=== PATIENT | female | born 1935 | race Caucasian/White ===

== ENCOUNTER 2017-06-10 08:47 | Observation (INO) ==
[2017-06-10] MEDS ORDERED: Ondansetron 4 MG/2 ML VIAL IVP ONE (09:11)
[2017-06-10] MEDS ORDERED: *HR* FentaNYL (PF) 100 MCG/2 ML VIAL IVP ONE (09:22)
[2017-06-10] MEDS ORDERED: Aspirin 81 MG TAB.CHEW PO STA (09:29)
--- NOTE | 2017-06-10 09:33 | Emergency Department Note ---
Disposition Clinical Impression: Abdominal pain Qualifiers: Abdominal location: right upper quadrant Qualified Code(s): R10.11 - Right upper quadrant pain Disposition: Admitted As Inpatient Condition: Fair Referrals: Graciela Crespo MD [Primary Care Provider] - Forms: ED Satisfaction Letter, Work/School Release Time of Disposition: 12:24 General Adult HPI - General Chief complaint: ED Abdominal Pain Stated complaint: Abd pain/vomiting Time Seen by Provider: 06/10/17 08:57 Source: patient Limitations: no limitations - History of Present Illness Pain Scale: 8 - Related Data Allergies Allergy/AdvReac Type Severity Reaction Status Date / Time No Known Allergies Allergy Verified 06/10/17 08:53 Past Medical History - Past Medical History Medical history: Reports: diabetes, hyperlipidemia, hypertension, renal disease , thyroid disease Psychiatric history: Reports: no psych history - Social History Smoking Status: Never smoker Smokeless Tobacco Status: No Alcohol use: Reports: none Drug use: Reports: none Physical Exam - General Limitations: no limitations General appearance: alert Course Vital Signs Temperature 98.2 F 06/10/17 08:50 Pulse Rate 75 06/10/17 08:50 Respiratory Rate 18 06/10/17 08:50 Blood Pressure 152/77 06/10/17 08:50 O2 Sat by Pulse Oximetry 99 06/10/17 08:50 Temperature 98.2 F 06/10/17 08:50 Pulse Rate 68 06/10/17 12:07 Respiratory Rate 15 06/10/17 12:07 Blood Pressure 134/54 06/10/17 12:07 O2 Sat by Pulse Oximetry 98 06/10/17 12:07 Oxygen Delivery Oxygen Delivery Room Air Medical Decision Making - Lab Data Result diagrams: 06/10/17 09:23 06/10/17 09:23 Lab Results 06/10/17 06/10/17 06/10/17 Range/Units 09:23 09:23 09:23 WBC 15.4 H (4.3-11.1) K/mcL RBC 3.96 (3.82-4.97) M/mcL Hgb 12.3 (11.5-15.4) g/dL Hct 37.7 (35.3-44.9) % MCV 95.2 (83.0-100.0) fL MCH 31.1 (28.0-33.3) pg MCHC 32.6 (31.6-35.5) g/dL RDW 13.6 (11.5-14.5) % Plt Count 217 (140-400) K/mcL MPV 13.1 H (9.4-12.4) fL Immature Gran % 0.5 (0-4) % Seg Neutrophils % 91.5 % Lymphocytes % 3.6 % Monocytes % 4.1 % Eosinophils % 0.1 % Basophils % 0.2 % Neutrophils # 14.1 H (1.6-8.9) K/mcL Lymphocytes # 0.6 (0.6-4.6) K/mcL Monocytes # 0.6 (0.0-1.3) K/mcL Eosinophils # 0.0 (0.0-0.6) K/mcL Basophils # 0.0 (0.0-0.2) K/mcL Sodium 138 (136-145) mEq/L Potassium 3.8 (3.5-5.1) mEq/L Chloride 104 (98-107) mEq/L Carbon Dioxide 26 (23-29) mEq/L BUN 34 H (8-23) mg/dL Creatinine 1.22 H (0.60-1.20) mg/dL Est GFR ( Amer) 51 L (> 60) Est GFR (Non-Af Amer) 42 L (> 60) BUN/Creatinine Ratio 28 H (6-26) Glucose 215 H (70-105) mg/dL Calculated Osmolality 300 (280-300) Calcium 9.5 (8.6-10.3) mg/dL Total Bilirubin 0.5 (0.3-1.0) mg/dL Direct Bilirubin 0.2 (0.0-0.2) mg/dL Indirect Bilirubin 0.3 (0.0-1.2) mg/dL AST 18 (13-39) Units/L ALT 14 (7-52) Units/L Alkaline Phosphatase 76 (34-104) Units/L Troponin I < 0.03 (< 0.04) ng/mL Serum Total Protein 6.9 (6.4-8.9) g/dL Albumin 4.2 (3.5-5.7) g/dL Globulin 2.7 (2.4-3.5) g/dL Albumin/Globulin Ratio 1.6 (1.1-2.2) Amylase 123 H (29-103) Units/L Lipase 22 (11-82) Units/L Urine Color (Yellow) Urine Clarity (Clear) Urine pH (5.0-8.0) pH Units Ur Specific [place] (1.010-1.025) Urine Protein (Neg-Trace) mg/dL Urine Glucose (UA) (Normal) mg/dL Urine Ketones (Negative) mg/dL Urine Blood (Negative) Urine Nitrite (Negative) Urine Bilirubin (Negative) Urine Urobilinogen (Normal) mg/dL Ur Leukocyte Esterase (Negative) Ur Culture Indicated? (NO) 06/10/17 Range/Units 10:12 WBC (4.3-11.1) K/mcL RBC (3.82-4.97) M/mcL Hgb (11.5-15.4) g/dL Hct (35.3-44.9) % MCV (83.0-100.0) fL MCH (28.0-33.3) pg MCHC (31.6-35.5) g/dL RDW (11.5-14.5) % Plt Count (140-400) K/mcL MPV (9.4-12.4) fL Immature Gran % (0-4) % Seg Neutrophils % % Lymphocytes % % Monocytes % % Eosinophils % % Basophils % % Neutrophils # (1.6-8.9) K/mcL Lymphocytes # (0.6-4.6) K/mcL Monocytes # (0.0-1.3) K/mcL Eosinophils # (0.0-0.6) K/mcL Basophils # (0.0-0.2) K/mcL Sodium (136-145) mEq/L Potassium (3.5-5.1) mEq/L Chloride (98-107) mEq/L Carbon Dioxide (23-29) mEq/L BUN (8-23) mg/dL Creatinine (0.60-1.20) mg/dL Est GFR ( Amer) (> 60) Est GFR (Non-Af Amer) (> 60) BUN/Creatinine Ratio (6-26) Glucose (70-105) mg/dL Calculated Osmolality (280-300) Calcium (8.6-10.3) mg/dL Total Bilirubin (0.3-1.0) mg/dL Direct Bilirubin (0.0-0.2) mg/dL Indirect Bilirubin (0.0-1.2) mg/dL AST (13-39) Units/L ALT (7-52) Units/L Alkaline Phosphatase (34-104) Units/L Troponin I (< 0.04) ng/mL Serum Total Protein (6.4-8.9) g/dL Albumin (3.5-5.7) g/dL Globulin (2.4-3.5) g/dL Albumin/Globulin Ratio (1.1-2.2) Amylase (29-103) Units/L Lipase (11-82) Units/L Urine Color Yellow (Yellow) Urine Clarity Clear (Clear) Urine pH 5.5 (5.0-8.0) pH Units Ur Specific [place] 1.020 (1.010-1.025) Urine Protein Negative (Neg-Trace) mg/dL Urine Glucose (UA) Normal (Normal) mg/dL Urine Ketones Negative (Negative) mg/dL Urine Blood Negative (Negative) Urine Nitrite Negative (Negative) Urine Bilirubin Negative (Negative) Urine Urobilinogen Normal (Normal) mg/dL Ur Leukocyte Esterase Negative (Negative) Ur Culture Indicated? NO (NO) Attestation Statement - Attestation Attestation: I, Ba Masters DO, examined this patient [id number] and my medical decision-making was reviewed with Chintan Wagner PGY-1, Resident Physician. I agree with the documented findings, disposition and treatment plan as described except to the extent set forth below. Please see my progress notes for details. 82-year-old female presents to emergency room with complaint of abdominal pain that came on at approximately 1 AM. The symptoms occur from sleep. Patient has no specific history of gallbladder disease or renal stone. Patient denies any recent trauma or injury. She denies any rashes or lesions on the skin. She has no history of aortic aneurysm or dissection. Patient currently denying chest pain shortness of breath headache vision changes. She has persistent nausea. She has gone up about 12 times prior to coming into the emergency room. She has not had emesis since arrival here. She denies any fevers or chills. She has no other complaints or issues prior to the events that started at 1 AM this morning. Vital signs are reviewed and are stable. Patient does appear to be in some mild distress. Head is atraumatic pupils are round reactive retro-ocular muscles are intact. Oropharynx is patent trachea is midline she has no stridor no trismus. Her lungs are clear heart is regular. She has abdominal discomfort and pain on the right upper quadrant of the abdomen that radiates around into the right flank. She has no epigastric discomfort she has no pulsatile masses or lesions. Patient has no pain anywhere else in her abdomen. Bedside ultrasound was utilized reviewing the patient's aorta and right upper quadrant. Patient does have what appears to be a distended gallbladder with possible wall thickening at 4 mm. Patient also has length of the gallbladder being approximately 12 cm at this time. Patient' s common bile duct does appear to have what looks like a stone in the common bile duct area as well as the dilation of the common bile duct is 1 cm. Patient 's pain will be controlled nausea and pain medication along with maintenance fluids. CT imaging of the abdomen chest x-ray and EKG will also be collected on CBC chemistry and urinalysis. Disposition will be determined once full workup and treatment course are completed. Concern is initially for possible obstructive cholecystitis. Other intra-abdominal pathology will be ruled out by imaging and treatment course. See detailed documentation of the physical exam, medical intervention, medical decision-making and disposition in the resident physician's note. No critical care provider this patient's treatment course at this time. 1115 CT imaging is concerning for possible pericholecystic fluid and gallbladder distention and swelling. Based on my review the CT scan and looks to be an obstructive stone in the common bile duct. Patient does not have any obstructive pathology based on labs at this point. Bedside ultrasound was completed by myself concerning for similar issue. Patient will have formal ultrasound completed this time determined whether or not she needs emergent intervention. If she does not to that admission will be completed the hospital service for further observation. Patient was discussed with the on-call surgeon Dr. Cosme and he is comfortable with the projected course of care including the ultrasound and disposition to be determined. 1225 Ultrasound does not show any acute significant signs of cholecystitis. This information was passed on to the surgeon. They agreed and recommended admission to the hospital service at this time. Admission process will be completed. Patient will be admitted for definitive management. Antibiotic regimen was restarted this time.
[2017-06-10] MEDS ORDERED: 0.9 % Sodium Chloride 1,000 ML ONE (09:50)
[2017-06-10 09:58] LABS: Basophils % 0.2 %; Eosinophils % 0.1 %; Hematocrit 37.7 % (35.3-44.9); Hemoglobin 12.3 g/dL (11.5-15.4); Immature Granulocytes % 0.5 % (0-4); Lymphocytes # 0.6 K/mcL (0.6-4.6); Lymphocytes % 3.6 %; Mean Corpuscular HGB Conc 32.6 g/dL (31.6-35.5); Mean Corpuscular Hemoglobin 31.1 pg (28.0-33.3); Mean Corpuscular Volume 95.2 fL (83.0-100.0); Mean Platelet Volume 13.1 fL (9.4-12.4); Monocytes # 0.6 K/mcL (0.0-1.3); Monocytes % 4.1 %; Neutrophils # 14.1 K/mcL (1.6-8.9); Platelet Count 217 K/mcL (140-400); Red Blood Count 3.96 M/mcL (3.82-4.97); Red Cell Distribution Width 13.6 % (11.5-14.5); Segmented Neutrophils % 91.5 %
[2017-06-10 10:38] LABS: Bilirubin,Urine Negative (Negative); Blood,Urine Negative (Negative); Clarity,Urine Clear (Clear); Color,Urine Yellow (Yellow); Glucose,Urine (UA) Normal (Normal); Ketones,Urine Negative (Negative); Leukocyte Esterase,Urine Negative (Negative); Nitrite,Urine Negative (Negative); PH,Urine 5.5 pH Units (5.0-8.0); Protein,Urine Negative (Neg-Trace); Urobilinogen,Urine Normal (Normal)
--- NOTE | 2017-06-10 10:40 | Emergency Department Note ---
Disposition Clinical Impression: Abdominal pain, Cholecystitis Disposition: Admitted As Inpatient Condition: Fair Referrals: Graciela Crespo MD [Primary Care Provider] - Forms: ED Satisfaction Letter, Work/School Release Time of Disposition: 12:15 Abdominal Pain HPI - General Chief Complaint: ED Abdominal Pain Stated Complaint: Abd pain/vomiting Time Seen by Provider: 06/10/17 08:57 Source: patient Mode of arrival: ambulatory Limitations: no limitations - History of Present Illness HPI Narrative: Silvia Charlton is an 82-year-old female presenting with abdominal pain that started this morning at about 1 AM, waking her from sleep. She describes the pain is 8 out of 10 in intensity, aching quality, and continuous and timing. She try to Zantac and another acid portfolio management marketing home, but vomited both of. She additionally complains of nausea, vomiting, anorexia, and back pain. She denies chest pain, shortness of breath, diaphoresis, and fever. Pain Scale: 0 - Related Data Allergies Allergy/AdvReac Type Severity Reaction Status Date / Time No Known Allergies Allergy Verified 06/10/17 08:53 Constitutional: Reports: chills. Denies: fever Cardiovascular: Denies: chest pain Gastrointestinal: Reports: abdominal pain, nausea, vomiting. Denies: diarrhea, melena, hematochezia Abdominal Pain PMH - Past Medical History Medical history: Reports: diabetes, hyperlipidemia, hypertension, renal disease , thyroid disease Female Surgical History: Reports: appendectomy, hysterectomy Psychiatric history: Reports: no psych history - Social History Smoking status: Never smoker Alcohol use: Reports: none Drug use: Reports: none Physical Exam - General Limitations: no limitations General appearance: alert - Head Head exam: atraumatic, normocephalic - Respiratory Respiratory exam: Present: normal lung sounds bilaterally. Absent: respiratory distress, accessory muscle use - Cardiovascular Cardiovascular exam: Present: regular rate, normal rhythm, normal heart sounds, +S1, +S2 - Abdominal Exam Abdominal exam: Present: soft, guarding (involuntary), normal bowel sounds. Absent: distention, rebound, Parekh's sign, Rovsing's sign Abdominal tenderness: Present: RUQ, moderate - Neurological Exam Neurological exam: Present: alert, oriented X3 - Psychiatric Psychiatric exam: Present: normal affect, normal mood - Skin Skin exam: Present: warm, dry Course Course Narrative: Patient presents with abdominal pain, nausea, and vomiting started early this morning. Clinical suspicion for gallbladder pathology. Workup was initiated with CBC, CMP, and CT abdomen/pelvis. Patient was administered 4 mg Zofran and 25 g fentanyl, which improved both her nausea and abdominal pain. Normal saline at 125 mL per hour was initiated as well. Lab work significant for white blood cell count of 15.4. CT showed findings concerning for cholecystitis. Bedside ultrasound revealed stone in the gallbladder. Case was discussed with surgeon concrete laborer, Dr. Cosme. Abdominal ultrasound was ordered and showed possible gallstones. Patient was discussed with admitting hospitalist who accepted the patient with consulted surgery. She remained pain and nausea free for the rest of her stay in the ER. Vital Signs Temperature 98.2 F 06/10/17 08:50 Pulse Rate 75 06/10/17 08:50 Respiratory Rate 18 06/10/17 08:50 Blood Pressure 152/77 06/10/17 08:50 O2 Sat by Pulse Oximetry 99 06/10/17 08:50 Temperature 98.2 F 06/10/17 08:50 Pulse Rate 68 06/10/17 12:07 Respiratory Rate 15 06/10/17 12:07 Blood Pressure 134/54 06/10/17 12:07 O2 Sat by Pulse Oximetry 98 06/10/17 12:07 Oxygen Delivery Oxygen Delivery Room Air Abdominal Pain - Medical Records Medical records reviewed: Yes I reviewed the patient's medical records. - Lab Data Lab results reviewed: Yes I reviewed the patient's lab results. Result diagrams: 06/10/17 09:23 06/10/17 09:23 Lab Results 06/10/17 06/10/17 06/10/17 Range/Units 09:23 09:23 09:23 WBC 15.4 H (4.3-11.1) K/mcL RBC 3.96 (3.82-4.97) M/mcL Hgb 12.3 (11.5-15.4) g/dL Hct 37.7 (35.3-44.9) % MCV 95.2 (83.0-100.0) fL MCH 31.1 (28.0-33.3) pg MCHC 32.6 (31.6-35.5) g/dL RDW 13.6 (11.5-14.5) % Plt Count 217 (140-400) K/mcL MPV 13.1 H (9.4-12.4) fL Immature Gran % 0.5 (0-4) % Seg Neutrophils % 91.5 % Lymphocytes % 3.6 % Monocytes % 4.1 % Eosinophils % 0.1 % Basophils % 0.2 % Neutrophils # 14.1 H (1.6-8.9) K/mcL Lymphocytes # 0.6 (0.6-4.6) K/mcL Monocytes # 0.6 (0.0-1.3) K/mcL Eosinophils # 0.0 (0.0-0.6) K/mcL Basophils # 0.0 (0.0-0.2) K/mcL PT (9.4-12.1) Seconds INR APTT (26.0-36.0) Seconds Sodium 138 (136-145) mEq/L Potassium 3.8 (3.5-5.1) mEq/L Chloride 104 (98-107) mEq/L Carbon Dioxide 26 (23-29) mEq/L BUN 34 H (8-23) mg/dL Creatinine 1.22 H (0.60-1.20) mg/dL Est GFR ( Amer) 51 L (> 60) Est GFR (Non-Af Amer) 42 L (> 60) BUN/Creatinine Ratio 28 H (6-26) Glucose 215 H (70-105) mg/dL Calculated Osmolality 300 (280-300) Calcium 9.5 (8.6-10.3) mg/dL Total Bilirubin 0.5 (0.3-1.0) mg/dL Direct Bilirubin 0.2 (0.0-0.2) mg/dL Indirect Bilirubin 0.3 (0.0-1.2) mg/dL AST 18 (13-39) Units/L ALT 14 (7-52) Units/L Alkaline Phosphatase 76 (34-104) Units/L Troponin I < 0.03 (< 0.04) ng/mL Serum Total Protein 6.9 (6.4-8.9) g/dL Albumin 4.2 (3.5-5.7) g/dL Globulin 2.7 (2.4-3.5) g/dL Albumin/Globulin Ratio 1.6 (1.1-2.2) Amylase 123 H (29-103) Units/L Lipase 22 (11-82) Units/L Urine Color (Yellow) Urine Clarity (Clear) Urine pH (5.0-8.0) pH Units Ur Specific [place] (1.010-1.025) Urine Protein (Neg-Trace) mg/dL Urine Glucose (UA) (Normal) mg/dL Urine Ketones (Negative) mg/dL Urine Blood (Negative) Urine Nitrite (Negative) Urine Bilirubin (Negative) Urine Urobilinogen (Normal) mg/dL Ur Leukocyte Esterase (Negative) Ur Culture Indicated? (NO) 06/10/17 06/10/17 Range/Units 09:23 10:12 WBC (4.3-11.1) K/mcL RBC (3.82-4.97) M/mcL Hgb (11.5-15.4) g/dL Hct (35.3-44.9) % MCV (83.0-100.0) fL MCH (28.0-33.3) pg MCHC (31.6-35.5) g/dL RDW (11.5-14.5) % Plt Count (140-400) K/mcL MPV (9.4-12.4) fL Immature Gran % (0-4) % Seg Neutrophils % % Lymphocytes % % Monocytes % % Eosinophils % % Basophils % % Neutrophils # (1.6-8.9) K/mcL Lymphocytes # (0.6-4.6) K/mcL Monocytes # (0.0-1.3) K/mcL Eosinophils # (0.0-0.6) K/mcL Basophils # (0.0-0.2) K/mcL PT 10.9 (9.4-12.1) Seconds INR 1.0 APTT 32.9 (26.0-36.0) Seconds Sodium (136-145) mEq/L Potassium (3.5-5.1) mEq/L Chloride (98-107) mEq/L Carbon Dioxide (23-29) mEq/L BUN (8-23) mg/dL Creatinine (0.60-1.20) mg/dL Est GFR ( Amer) (> 60) Est GFR (Non-Af Amer) (> 60) BUN/Creatinine Ratio (6-26) Glucose (70-105) mg/dL Calculated Osmolality (280-300) Calcium (8.6-10.3) mg/dL Total Bilirubin (0.3-1.0) mg/dL Direct Bilirubin (0.0-0.2) mg/dL Indirect Bilirubin (0.0-1.2) mg/dL AST (13-39) Units/L ALT (7-52) Units/L Alkaline Phosphatase (34-104) Units/L Troponin I (< 0.04) ng/mL Serum Total Protein (6.4-8.9) g/dL Albumin (3.5-5.7) g/dL Globulin (2.4-3.5) g/dL Albumin/Globulin Ratio (1.1-2.2) Amylase (29-103) Units/L Lipase (11-82) Units/L Urine Color Yellow (Yellow) Urine Clarity Clear (Clear) Urine pH 5.5 (5.0-8.0) pH Units Ur Specific [place] 1.020 (1.010-1.025) Urine Protein Negative (Neg-Trace) mg/dL Urine Glucose (UA) Normal (Normal) mg/dL Urine Ketones Negative (Negative) mg/dL Urine Blood Negative (Negative) Urine Nitrite Negative (Negative) Urine Bilirubin Negative (Negative) Urine Urobilinogen Normal (Normal) mg/dL Ur Leukocyte Esterase Negative (Negative) Ur Culture Indicated? NO (NO) - Radiology Data Radiology results reviewed: Yes I reviewed the patient's radiology results. Abdomen/Pelvis CT 06/10/17 09:19 IMPRESSION: 1. Cholelithiasis. Mild-moderate distention of the gallbladder wall with suggestion of mild gallbladder wall thickening with minimal pericholecystic injection. Combination of findings is suspicious representing changes of cholecystitis. Clinical correlation would be helpful. 2. No evidence of bowel obstruction, intraperitoneal free air, or abscess. 3. Short segmental area of prominence of mural thickness of the rectosigmoid colon. While finding could be related to incomplete distention/adherent stool, underlying mural thickening cannot be excluded. Follow-up nonemergent barium enema and/or colonoscopy would be helpful for more complete evaluation. 4. Compression deformity of the T12 vertebral body. Finding favored to be chronic in nature as there is no adjacent paraspinous soft tissue abnormality. Clinical correlation would be helpful. D/ / 06/10/2017 10:12:39 Armond Kapoor MD / den Interpreting Provider: Armond Kapoor MD Chest X-Ray 06/10/17 09:29 IMPRESSION: Negative D/ / Brody Daniels MD / Brody Daniels MD Interpreting Provider: Brody Daniels MD Gallbladder Ultrasound 06/10/17 11:21 IMPRESSION: Gallbladder sludge with possible nonshadowing gallstones. No specific sonographic evidence of acute cholecystitis. D/ / Monico Herman MD / Monico Herman MD Interpreting Provider: Monico Herman MD
[2017-06-10 11:10] LABS: Albumin 4.2 g/dL (3.5-5.7); Albumin/Globulin Ratio 1.6 (1.1-2.2); Bilirubin,Direct 0.2 mg/dL (0.0-0.2); Bilirubin,Indirect 0.3 mg/dL (0.0-1.2); Bilirubin,Total 0.5 mg/dL (0.3-1.0); Calcium 9.5 mg/dL (8.6-10.3); Globulin 2.7 g/dL (2.4-3.5); Potassium 3.8 mEq/L (3.5-5.1); Total Protein 6.9 g/dL (6.4-8.9)
[2017-06-10] MEDS: 0.9 % Sodium Chloride 1,000 ML IVC SCH ×2 (11:15→18:33)
[2017-06-10] MEDS ORDERED: Piperacillin/Tazobactam 3.375 GM in 0.9 % Sodium Chloride Mini Bag 100 ML IVPB ONE (11:21)
[2017-06-10 12:34] LABS: Prothrombin Time 10.9 Seconds (9.4-12.1)
[2017-06-10 12:36] LABS: Activated Partial Thrombo Time 32.9 Seconds (26.0-36.0)
--- NOTE | 2017-06-10 14:39 | Internal Med History&Physical ---
Date of Encounter: 06/10/17 Time of Encounter: 14:00 Assessment and Plan (1) Cholecystitis Current visit: Yes Status: Acute In the ER, CT of the abdomen was done which showed cholelithiasis with mild to moderate distention of the gallbladder wall suggestive of mild gallbladder thickening with minimal pericholecystic injection, all suggestive of possible cholecystitis. Right upper quadrant ultrasound of the gallbladder showed sludge. Will continue IV Zosyn started in the ER General surgery consult and appreciate recommendations (2) CKD (chronic kidney disease) stage 3, GFR 30-59 ml/min Current visit: Yes Status: Acute Creatinine appears to be about at baseline at 1.22 Continue to monitor (3) Diabetes Current visit: Yes Status: Acute Controlled; will hold metformin and cover with sliding scale insulin Qualifiers: Diabetes mellitus type: type 2 Qualified Code(s): E11.9 - Type 2 diabetes mellitus without complications (4) HTN (hypertension), benign Current visit: Yes Status: Acute Controlled; continue lisinopril hydrochlorothiazide (5) HLD (hyperlipidemia) Current visit: Yes Status: Acute Continue statin Qualifiers: Qualified Code(s): E78.5 - Hyperlipidemia, unspecified (6) Hypothyroid Current visit: Yes Status: Acute Continue levothyroxine Qualifiers: Hypothyroidism type: unspecified Qualified Code(s): E03.9 - Hypothyroidism , unspecified (7) Glaucoma Current visit: Yes Status: Acute Continue home eyedrops Qualifiers: Glaucoma stage: stage unspecified Qualified Code(s): H40.10X0 - Unspecified open-angle glaucoma, stage unspecified (8) DVT prophylaxis Current visit: Yes Status: Acute Subcutaneous heparin Internal Medicine - H&P: HPI Chief complaint: Abdominal pain and nausea/vomiting Admitted From: Home Plans for Post Hospital Care: Home History of present illness: Patient is an 82-year-old female with past medical history significant for diabetes, glaucoma, hypertension, hyperlipidemia, hypothyroid and CDK stage III who presents to the ER on 06/10/17 due to abdominal pain and nausea/vomiting. Patient reports waking up this morning with right upper quadrant abdominal pain which she describes as achy which was constant with no relieving or provoking factors. Patient reported associated symptoms of nausea and vomiting but denied any chest pain or shortness of breath. Patient also denied any diarrhea or constipation. Patient was brought to the ER for further evaluation. In the ER, CT of the abdomen was done which showed cholelithiasis with mild to moderate distention of the gallbladder wall suggestive of mild gallbladder thickening with minimal pericholecystic injection, all suggestive of possible cholecystitis. Right upper quadrant ultrasound of the gallbladder showed sludge. Surgery was consult from the ER and patient will be admitted to medical surgical floor for further management and evaluation. Past Med Surg Social Fam HX - Past Medical History Medical history: diabetes, hyperlipidemia, hypertension, renal disease, thyroid disease Psychiatric history: no psych history - Past Surgical History Surgical History: hysterectomy - Social History Smoking Status: Never smoker Smokeless Tobacco Status: No Alcohol use: none Drug use: none Internal Medicine - H&P: Meds Atorvastatin [Lipitor] 40 mg PO HS 06/10/17 [History] Brimonidine Tartrate [Alphagan P] 1 drop OP TID 06/10/17 [History] Glimepiride [Amaryl] 4 mg PO BID 06/10/17 [History] Latanoprost [Xalatan] 1 drop OP HS 06/10/17 [History] Levothyroxine [Synthroid] 100 mcg PO 0630 06/10/17 [History] Lisinopril/Hydrochlorothiazide [Zestoretic 20-25 mg Tablet] 1 tab PO DAILY 06/10 [History] Metformin HCl [Glucophage] 1,000 mg PO BID 06/10/17 [History] Timolol Maleate 0.5% [Timolol Maleate 0.5%] 1 drop OP BID 06/10/17 [History] Vit C/E/Zn/Coppr/Lutein/Zeaxan [Preservision Areds 2 Softgel] 1 tab PO DAILY [History] 3 Allergy/AdvReac Type Severity Reaction Status Date / Time No Known Allergies Allergy Verified 06/10/17 12:50 All Systems PM: A 10-system review of systems was performed and is negative for pertinent findings except as documented above in the HPI. - Constitutional Vitals: Temp Pulse Resp BP Pulse Ox 98.2 F 72 15 135/56 94 06/10/17 08:50 06/10/17 14:35 06/10/17 14:35 06/10/17 14:35 06/10/17 14:35 General appearance: Present: no acute distress - Head Head exam: Present: normocephalic - Eye Eye exam: Present: normal appearance - ENT ENT exam: Present: mucous membranes moist - Respiratory Respiratory exam: Present: CTAB. Absent: accessory muscle use, rales, rhonchi, wheezes - Cardiovascular Cardiovascular exam: Present: RRR, +S1, +S2. Absent: diastolic murmur, gallop, rubs, systolic murmur - GI/Abdominal GI/Abdominal exam: Present: soft, tenderness. Absent: distended - Extremities Exam Extremities exam: Absent: pedal edema - Neurological Exam Neurological exam: Present: oriented X3 - Psychiatric Psychiatric exam: Present: normal mood - Skin Skin exam: Present: normal color Internal Med - H&P Results - Labs CBC & Chem 7: 06/10/17 09:23 06/10/17 09:23
[2017-06-10] MEDS ORDERED: Naloxone 0.4 MG/ML INJ IVP PRN (14:55)
--- NOTE | 2017-06-10 17:44 | General Surgery Consult Note ---
<Aaron Borja - Last Filed: 06/10/17 17:31> Date of Encounter: 06/10/17 Time of Encounter: 16:00 Assessment and Plan (1) Acute cholecystitis Current Visit: Yes Status: Acute Patient is afebrile and appears in no acute distress. Patient admits nausea and vomiting prior to admission and continues to have RUQ and RLQ pain. Labs show leukocytosis with a white blood count of 15.4, BUN of 34, and creatinine of 1.22. UA was negative. CT of the abdomen shows cholelithiasis with mild- moderate distention of the gallbladder wall with suggestion of mild gallbladder wall thickening with minimal pericholecystic injection.Right upper quadrant ultrasound of the gallbladder showed sludge. Plan: Plan for surgical intervention within [address] Cosme ( laparoscopic cholecystectomy) Consent printed and signed by Dr. Cosme. NPO diet now continue IV fluids continue to monitor the patient closely History of Present Illness Consult date: 06/10/17 Reason for consult: other (Acute cholecystitis) History of present illness: The patient is a 82-year-old female with a past medical history of diabetes, glaucoma, hypertension, hyperlipidemia, and hypothyroidism who presented to the emergency room on 06/10/2017 complaining of abdominal pain, nausea, and vomiting. The patient states that the abdominal pain woke her up this morning at approximately 1 AM. She describes it as a right upper quadrant pain that is constant, achy, sore, and radiates to her back. She admits associated symptoms including nausea and vomiting. Patient stated her last bowel movement was yesterday and describes it as soft, formed, and nonbloody. She denies any chest pain, shortness of breath, fever, headaches, vision changes, urinary symptoms, and any weaknesses at this time. Patient also denies diarrhea or constipation. Evaluation the emergency department included labs that showed leukocytosis with a white blood count of 15.4, BUN of 34, and creatinine of 1.22. UA was negative. CT of the abdomen shows cholelithiasis with Mild- moderate distention of the gallbladder wall with suggestion of mild gallbladder wall thickening with minimal pericholecystic injection. Surgery was consulted for evaluation of possible acute cholecystitis. Patient surgical history includes a hysterectomy for fibroids over 30 years ago. Patient denies any fever, nausea, and vomiting at this time. Patient admits she still has right upper quadrant and right lower quadrant abdominal pain that she describes as achy and sore. Patient has no other concerns at this time. Past Med Surg Social Fam HX - Past Medical History Medical history: diabetes, hyperlipidemia, hypertension, renal disease, thyroid disease Psychiatric history: no psych history - Past Surgical History Surgical History: hysterectomy - Social History Smoking Status: Never smoker Smokeless Tobacco Status: No Alcohol use: none Drug use: none Medications and Allergies Atorvastatin [Lipitor] 40 mg PO HS 06/10/17 [History] Brimonidine Tartrate [Alphagan P] 1 drop OP TID 06/10/17 [History] Glimepiride [Amaryl] 4 mg PO BID 06/10/17 [History] Latanoprost [Xalatan] 1 drop OP HS 06/10/17 [History] Levothyroxine [Synthroid] 100 mcg PO 0630 06/10/17 [History] Lisinopril/Hydrochlorothiazide [Zestoretic 20-25 mg Tablet] 1 tab PO DAILY 06/10 [History] Metformin HCl [Glucophage] 1,000 mg PO BID 06/10/17 [History] Timolol Maleate 0.5% [Timolol Maleate 0.5%] 1 drop OP BID 06/10/17 [History] Vit C/E/Zn/Coppr/Lutein/Zeaxan [Preservision Areds 2 Softgel] 1 tab PO DAILY [History] 3 Allergy/AdvReac Type Severity Reaction Status Date / Time No Known Allergies Allergy Verified 06/10/17 12:50 Review of Systems All systems PM: The remainder of the systems were reviewed and are negative - Constitutional as per HPI General Surgery Exam Initial Vital Signs Temp Pulse Resp BP Pulse Ox 98.2 F 75 18 152/77 99 06/10/17 08:50 06/10/17 08:50 06/10/17 08:50 06/10/17 08:50 06/10/17 08:50 - General physical appearance well developed, well nourished, no distress, moderate pain - Eyes PERRL, normal ocular movement - ENT dry mucosa - Neck trachea midline - Respiratory normal expansion, normal respiratory effort, clear to auscultation - Cardiovascular Cardiovascular exam: Present: RRR, no murmurs/rubs/gallops - Abdomen Abdomen general surgery: Present: bowel sounds present, soft, tender (August tenderness to palpation the right upper quadrant and lower quadrant. Negative Rovsing's sign. No tenderness at the McBurney's point.) Abdominal Tenderness: Present: RUQ, RLQ - Integumentary Integumentary general surgery: Present: warm and dry, no abnormal pigmentation - Neurologic Present: CN 2-12 grossly intact - Psychiatric Psychiatric general surgery: Present: A&Ox3, appropriate, other (Patient is very pleasant) Exam Initial Vital Signs Temp Pulse Resp BP Pulse Ox 98.2 F 75 18 152/77 99 06/10/17 08:50 06/10/17 08:50 06/10/17 08:50 06/10/17 08:50 06/10/17 08:50 Results - Labs 06/10/17 09:23 06/10/17 09:23 Abnormal lab results WBC 15.4 K/mcL (4.3-11.1) H 06/10/17 09:23 MPV 13.1 fL (9.4-12.4) H 06/10/17 09:23 Neutrophils # 14.1 K/mcL (1.6-8.9) H 06/10/17 09:23 BUN 34 mg/dL (8-23) H 06/10/17 09:23 Creatinine 1.22 mg/dL (0.60-1.20) H 06/10/17 09:23 Est GFR ( Amer) 51 (> 60) L 06/10/17 09:23 Est GFR (Non-Af Amer) 42 (> 60) L 06/10/17 09:23 BUN/Creatinine Ratio 28 (6-26) H 06/10/17 09:23 Glucose 215 mg/dL (70-105) H 06/10/17 09:23 POC Glucose 133 mg/dL (58-89) H 06/10/17 17:02 Amylase 123 Units/L (29-103) H 06/10/17 09:23 All other labs normal. Consult Discharge Plan - Plan Referrals: Graciela Crespo MD [Primary Care Provider] - <Jm Cosme - Last Filed: 06/11/17 07:56> Date of Encounter: 06/10/17 Review of Systems All systems PM: The remainder of the systems were reviewed and are negative General Surgery Exam Initial Vital Signs Temp Pulse Resp BP Pulse Ox 98.2 F 75 18 152/77 99 06/10/17 08:50 06/10/17 08:50 06/10/17 08:50 06/10/17 08:50 06/10/17 08:50 Exam Initial Vital Signs Temp Pulse Resp BP Pulse Ox 98.2 F 75 18 152/77 99 06/10/17 08:50 06/10/17 08:50 06/10/17 08:50 06/10/17 08:50 06/10/17 08:50 Results - Labs 06/10/17 09:23 06/10/17 09:23 Abnormal lab results WBC 15.4 K/mcL (4.3-11.1) H 06/10/17 09:23 MPV 13.1 fL (9.4-12.4) H 06/10/17 09:23 Neutrophils # 14.1 K/mcL (1.6-8.9) H 06/10/17 09:23 BUN 34 mg/dL (8-23) H 06/10/17 09:23 Creatinine 1.22 mg/dL (0.60-1.20) H 06/10/17 09:23 Est GFR ( Amer) 51 (> 60) L 06/10/17 09:23 Est GFR (Non-Af Amer) 42 (> 60) L 06/10/17 09:23 BUN/Creatinine Ratio 28 (6-26) H 06/10/17 09:23 Glucose 215 mg/dL (70-105) H 06/10/17 09:23 POC Glucose 112 mg/dL (58-89) H 06/11/17 05:24 Amylase 123 Units/L (29-103) H 06/10/17 09:23 All other labs normal. - Attending Attestation I examined this patient and my medical decision-making was reviewed with the Resident Physician. I agree with the documented findings, disposition and treatment plan as described except to the extent set forth below. I reviewed the above assessment and evaluation with the resident and agree with the above plan. Patient has had symptoms of epigastric and right upper quadrant abdominal pain. Pain noted to palpation on current examination. No current nausea. Our plan is to allow for a decrease in the inflammation over the next 24 hours and plan for a laparoscopic cholecystectomy tomorrow. Risk and benefits have been discussed with the patient and family and they agree to the above plan.
[2017-06-10] MEDS: *HR* Heparin 5,000 UNIT/ML VIAL SQ SCH (21:07)
[2017-06-11] MEDS: 0.9 % Sodium Chloride 1,000 ML IVC SCH (03:08)
[2017-06-11] MEDS: *HR* Heparin 5,000 UNIT/ML VIAL SQ SCH ×3 (06:13→21:20)
[2017-06-11 08:24] LABS: Basophils % 0.1 %; Hematocrit 36.1 % (35.3-44.9); Hemoglobin 11.3 g/dL (11.5-15.4); Immature Granulocytes % 1.7 % (0-4); Lymphocytes % 4.3 %; Mean Corpuscular HGB Conc 31.3 g/dL (31.6-35.5); Mean Corpuscular Hemoglobin 30.5 pg (28.0-33.3); Mean Corpuscular Volume 97.3 fL (83.0-100.0); Mean Platelet Volume 13.1 fL (9.4-12.4); Monocytes # 0.9 K/mcL (0.0-1.3); Monocytes % 3.9 %; Neutrophils # 19.8 K/mcL (1.6-8.9); Platelet Count 208 K/mcL (140-400); Red Blood Count 3.71 M/mcL (3.82-4.97); Red Cell Distribution Width 14.2 % (11.5-14.5)
[2017-06-11 08:50] LABS: Calcium 8.6 mg/dL (8.6-10.3); Potassium 3.4 mEq/L (3.5-5.1)
[2017-06-11 08:51] LABS: Albumin 3.6 g/dL (3.5-5.7); Albumin/Globulin Ratio 1.4 (1.1-2.2); Bilirubin,Direct 0.3 mg/dL (0.0-0.2); Bilirubin,Indirect 0.4 mg/dL (0.0-1.2); Bilirubin,Total 0.7 mg/dL (0.3-1.0); Globulin 2.6 g/dL (2.4-3.5); Total Protein 6.2 g/dL (6.4-8.9)
[2017-06-11] MEDS ORDERED: Acetaminophen IV 1,000 MG/100 ML INFUS..BTL IVPB ONE (09:17)
[2017-06-11] MEDS ORDERED: Famotidine 20 MG/2 ML VIAL IVP ONE (09:17)
[2017-06-11] MEDS ORDERED: Acetaminophen IV 1,000 MG/100 ML INFUS..BTL ONE (09:18)
[2017-06-11] MEDS ORDERED: Famotidine 20 MG/2 ML VIAL ONE (09:18)
--- NOTE | 2017-06-11 10:49 | Anesthesia Evaluation PreOp ---
Date of Encounter: 06/11/17 Time of Encounter: 10:50 - Past History Planned Operation: Lap Cholecystectomy Cardiac History: HTN, Hyperlipidemia Pulmonary History: Denies Any Significant HX TELEPRINTER History: Denies Any Significant HX Other Medical History: Renal (CKD), Diabetes Type II Anesthesia History: No Prior Anesthetic Complications : No Alcohol Use: none Drug use: none Medications and Allergies Atorvastatin [Lipitor] 40 mg PO HS 06/10/17 [History] Brimonidine Tartrate [Alphagan P] 1 drop OP TID 06/10/17 [History] Glimepiride [Amaryl] 4 mg PO BID 06/10/17 [History] Latanoprost [Xalatan] 1 drop OP HS 06/10/17 [History] Levothyroxine [Synthroid] 100 mcg PO 0630 06/10/17 [History] Lisinopril/Hydrochlorothiazide [Zestoretic 20-25 mg Tablet] 1 tab PO DAILY 06/10 [History] Metformin HCl [Glucophage] 1,000 mg PO BID 06/10/17 [History] Timolol Maleate 0.5% [Timolol Maleate 0.5%] 1 drop OP BID 06/10/17 [History] Vit C/E/Zn/Coppr/Lutein/Zeaxan [Preservision Areds 2 Softgel] 1 tab PO DAILY [History] 3 Allergy/AdvReac Type Severity Reaction Status Date / Time No Known Allergies Allergy Verified 06/10/17 12:50 - Meds/Allergy Pre-op Review Medications Reviewed: Yes Allergies Reviewed: Yes Beta Blockers on Current Med List: No Anesthesia Results - Labs 06/11/17 07:57 06/11/17 07:57 Laboratory Tests 06/10/17 06/11/17 06/11/17 09:23 07:57 07:57 Hgb 11.3 L Hct 36.1 Plt Count 208 PT 10.9 INR 1.0 APTT 32.9 Sodium 143 Potassium 3.4 L BUN 36 H Creatinine 1.46 H - Imaging EKG: report reviewed (SR) Anesthesia Exam O2 Sat Height 1.68 m Weight 76.2 kg Weight 76.2 kg O2 Sat by Pulse Oximetry 93 O2 Sat by Pulse Oximetry 94 O2 Sat by Pulse Oximetry 96 O2 Sat by Pulse Oximetry 96 O2 Sat by Pulse Oximetry 94 O2 Sat by Pulse Oximetry 95 O2 Sat by Pulse Oximetry 98 O2 Sat by Pulse Oximetry 98 Vital Signs Temp Pulse Resp BP Pulse Ox 98.2 F 75 18 152/77 99 06/10/17 08:50 06/10/17 08:50 06/10/17 08:50 06/10/17 08:50 06/10/17 08:50 Height: 5'6 Weight: 157 lbs NPO (# of Hours): MN Pain Scale: 0 - HEENT Pupil (Motor): Pupils equal, EOMI Mallampati: III Teeth: Normal Oral Opening: Less than or equal to 3 - TELEPRINTER LOC: Oriented TELEPRINTER Motor: Normal RUE, Normal LUE, Normal RLE, Normal LLE, Normal Face TELEPRINTER Sensory: Normal: RUE, LUE, RLE, LLE, Face - Cardiac Rhythm: Regular Murmur: None JVD: No Carotid Bruit: No - Pulmonary Breath Sounds: bilateral Clear Respiratory Effort: Symmetrical Anesthesia Assess/Plan ASA Score: 3 (HTN DM CKD) Modified Bevier Scale for Level of Consciousness: Cooperative, oriented, and tranquil Anesthetic Plan: General, Regional (Discussed GA and RA, agrees to proceed) Monitoring Plan: Standard Monitors Recovery Plan: PACU
[2017-06-11] MEDS ORDERED: Isovue-300 50 ML VIAL IVP ONE (10:54)
[2017-06-11] MEDS ORDERED: Bupivacaine/EPI 1:200k 0.5%PF 10 ML VIAL ONE (10:54)
[2017-06-11] MEDS ORDERED: Dexamethasone 4 MG/ML VIAL ONE (10:58)
[2017-06-11] MEDS ORDERED: Lidocaine -MPF 2% 2 ML VIAL ONE (10:58)
[2017-06-11] MEDS ORDERED: Ondansetron 4 MG/2 ML VIAL ONE (10:58)
[2017-06-11] MEDS ORDERED: *HR* FentaNYL (PF) 100 MCG/2 ML VIAL ONE (10:58)
[2017-06-11] MEDS ORDERED: *HR* Propofol 200 MG/20 ML VIAL IVP ONE (10:58)
[2017-06-11] MEDS ORDERED: CefOXitin 2,000 MG VIAL ONE (11:28)
[2017-06-11] MEDS ORDERED: cefOXitin 2,000 MG in Water for inj. (sterile) 10 ML IVP ONE (11:35)
[2017-06-11] MEDS ORDERED: Neostigmine Methylsulfate 3 MG/3 ML SYRINGE ONE (12:13)
--- NOTE | 2017-06-11 12:22 | Operative Note ---
Date of procedure: 06/11/17 Pre-op diagnosis: Acute cholecystitis Post-op diagnosis: same Procedure: Laparoscopic cholecystectomy Anesthesia: CLAUDIA Surgeon: Jm Cosme Was there an call center assistant present: No Spray Maker Other: RADHA Rodriguez Estimated blood loss (cc): 15 Specimen: gallbladder and contents Condition: stable Disposition: PACU Procedure in Detail: Date of surgery: 06/11/17 After properly identifying the patient, the patient was brought to the operating room and placed in the supine position. After proper IV sedation was achieved followed by general endotracheal intubation, the patient's abdomen was prepped and draped in a normal sterile fashion. A timeout was performed noting the patient's name and type of procedure to be performed. 0.5% Marcaine was used to infiltrate the epidermis, dermis, and subcutaneous tissue in the supraumbilical region followed by making an incision with an 11 blade scalpel down to the level of the rectus fascia. The rectus fascia was incised and the abdomen was entered and a 12 mm port was placed through the incision. A laparoscopic camera was placed through the port which showed no injury to the intra-abdominal organs upon entry. A subxiphoid 5 mm port and a right subcostal margin 5 mm port were placed under direct camera visualization after each area was first infiltrated with 0.5% Marcaine. The patient was placed in a reverse Trendelenburg position. The right upper quadrant was examined and the gallbladder was noted to be distended with omental adhesion and a exudative rind. A nontraumatic grasper was then used to carefully dissect the omentum away from the dome of the gallbladder which did peel-away easily. Since the gallbladder was tense a laparoscopic needle decompression was used to decompress approximately 85 mL of bilious fluid from the gallbladder. This allowed for grasping of the gallbladder and retraction of the gallbladder anteriorly/superiorly. The gallbladder and surrounding lymphatic tissues were and complained and the inflamed fatty tissue was dissected away from the infundibulum and cystic duct with a nontraumatic grasper and [place]. The cystic duct and cystic artery were carefully dissected away from the normal resting position. The cystic duct was clipped with laparoscopic clips and incised laparoscopic scissors. The cystic artery was identified, clipped with laparoscopic clips, and incised laparoscopic scissors. The gallbladder was then dissected away from the gallbladder fossa with Bovie cauterization while Bovie cauterization was used to maintain hemostasis. Once the gallbladder was dissected free it was removed from the abdomen via an Endobag. Reinspection of the right upper quadrant demonstrated maintenance of hemostasis and right upper quadrant was irrigated with normal saline solution until the effluent was clear. All ports were then removed from the abdomen after the abdomen was desufflated. The rectus fascia for the supraumbilical incision was reapproximated with a figure of eight 0 Vicryl suture. The subcutaneous tissue was reapproximated with interrupted 3-0 Vicryl sutures. The epidermal and dermal layers for the remaining incisions were closed with 4-0 Monocryl sutures. Needle, sponge, and instrument counts were correct 2 and the incisions were covered with Steri- Strips and Band-Aids. The patient was aroused from IV sedation, extubated in the operating room without complication, and transported to the recovery room in stable condition.
--- NOTE | 2017-06-11 12:24 | Event Note ---
Date of Encounter: 06/11/17 Time of Encounter: 12:22 Laparscopic cholecystectomy performed. Patient tolerated the procedure well. From a surgical standpoint it is ok for the patient to be discharged home if she tolerates PO and PO pain meds. No heavy lifting greater than 15lbs for two weeks. May remove Band-Aids in two days. May shower in two days. We will make sure the patient has follow up appointment in two-three weeks.
--- NOTE | 2017-06-11 12:33 | Anesthesia Evaluation Post Op ---
Date of Encounter: 06/11/17 Time of Encounter: 12:40
--- NOTE | 2017-06-11 12:48 | Anesthesia Evaluation Post Op ---
Date of Encounter: 06/11/17 Time of Encounter: 12:50 - Vital Signs Vital Signs: Vital Signs/O2 Sat/Glucose, Most Current Temp Pulse Resp BP Pulse Ox 06/11/17 12:47 97.4 F L 71 16 111/57 98 06/11/17 12:42 74 16 121/59 98 06/11/17 12:32 78 16 112/50 97 06/11/17 12:22 97.2 F L 77 16 126/47 100 - Lungs Lungs: Clear Ascult./Percussion - Airway Airway: Non-obstructed - Cardiovascular Regular Rate - Mental Status Mental Status: Alert & Oriented, Answers Appropriately - Pain Pain Scale: 0 - Nausea Vomiting Nausea Vomiting: Not Present - Hydration Hydration: Ice chips - Discharge PostOp Status: Transfer Patient to floor
[2017-06-11] MEDS ORDERED: *HR* OxyCODONE/APAP 7.5/325 TABLET PO PRN (12:54)
[2017-06-11] MEDS ORDERED: Naloxone 0.4 MG/ML INJ IVP PRN (12:54)
--- NOTE | 2017-06-11 14:40 | Internal Med Progress Note ---
Date of Encounter: 06/11/17 Time of Encounter: 14:38 - Assessment and plan (1) Acute cholecystitis Current Visit: Yes Status: Acute Assessment and plan: Status post laparoscopy cholecystectomy POD #0. Doing well Monitor diet pain control Recheck creatinine and WBC in AM. Monitor vitals. Continue Zosyn. Likely discharge tomorrow in AM if tolerates diet (2) CKD (chronic kidney disease) stage 3, GFR 30-59 ml/min Current Visit: Yes Status: Acute (3) Hypertension Current Visit: Yes Status: Acute Qualifiers: Hypertension type: essential hypertension Qualified Code(s): I10 - Essential (primary) hypertension (4) Diabetes Current Visit: Yes Status: Acute Qualifiers: Diabetes mellitus type: type 2 Qualified Code(s): E11.9 - Type 2 diabetes mellitus without complications (5) Glaucoma Current Visit: Yes Status: Acute Qualifiers: Glaucoma stage: stage unspecified Qualified Code(s): H40.10X0 - Unspecified open-angle glaucoma, stage unspecified (6) HLD (hyperlipidemia) Current Visit: Yes Status: Acute Qualifiers: Qualified Code(s): E78.5 - Hyperlipidemia, unspecified (7) Hypothyroid Current Visit: Yes Status: Acute Qualifiers: Hypothyroidism type: unspecified Qualified Code(s): E03.9 - Hypothyroidism , unspecified (8) DVT prophylaxis Current Visit: Yes Status: Acute - Subjective Interval history: Patient returned from lap cholecystectomy, tolerated well. Patient about to try to eat lunch. Denies fevers/chills, n/v. - Constitutional Vitals: Temp Pulse Resp BP Pulse Ox 97.4 F L 57 18 94/48 96 06/11/17 13:45 06/11/17 13:45 06/11/17 13:45 06/11/17 13:45 06/11/17 13:45 General appearance: Present: no acute distress - Head Head exam: Present: atraumatic, normocephalic - Eye Eye exam: Present: PERRL, conjuntiva pink, sclera anicteric Pupils: Present: PERRL - Neck Neck exam general surgery: Present: supple, trachea midline. Absent: lymphadenopathy - Respiratory Respiratory exam: Present: CTAB. Absent: accessory muscle use, rales, rhonchi, wheezes - Cardiovascular Cardiovascular exam: Present: RRR, +S1, +S2. Absent: diastolic murmur, gallop, rubs, systolic murmur - GI/Abdominal GI/Abdominal exam: Present: normal bowel sounds, soft, tenderness, no peritoneal signs. Absent: distended - Extremities Exam Extremities exam: Present: warm, radial pulses palpable and symmetrical. Absent : calf tenderness, cyanotic, pedal edema - Neurological Exam Neurological exam: Present: CN II-XII intact, oriented X3, no focal deficits. Absent: pronater drift, facial droop, speech deficit - Skin Skin exam: Present: dry, intact Internal Medicine: Result - Labs CBC & Chem 7: 06/11/17 07:57 06/11/17 07:57 Labs: Short CBC 06/11/17 Range/Units 07:57 WBC 22.1 H (4.3-11.1) K/mcL Hgb 11.3 L (11.5-15.4) g/dL Hct 36.1 (35.3-44.9) % Plt Count 208 (140-400) K/mcL Neutrophils # 19.8 H (1.6-8.9) K/mcL BMP 06/11/17 07:57 Sodium 143 Potassium 3.4 L Chloride 108 H Carbon Dioxide 23 BUN 36 H Creatinine 1.46 H Glucose 134 H Calcium 8.6 Liver Function 06/11/17 Range/Units 07:57 Total Bilirubin 0.7 (0.3-1.0) mg/dL Direct Bilirubin 0.3 H (0.0-0.2) mg/dL AST 16 (13-39) Units/L ALT 11 (7-52) Units/L Alkaline Phosphatase 58 (34-104) Units/L Albumin 3.6 (3.5-5.7) g/dL - ABG Interpretation ABG results: PT/INR, D-dimer PT 10.9 Seconds (9.4-12.1) 06/10/17 09:23 Consult Discharge Plan - Plan Referrals: Graciela Crespo MD [Primary Care Provider] -
[2017-06-11] MEDS: Piperacillin/Tazobactam 3.375 GM in 0.9 % Sodium Chloride Mini Bag 100 ML IVPB SCH (15:32)
[2017-06-12] MEDS: 0.9 % Sodium Chloride 1,000 ML IVC SCH ×2 (01:13→09:14)
[2017-06-12] MEDS: Piperacillin/Tazobactam 3.375 GM in 0.9 % Sodium Chloride Mini Bag 100 ML IVPB SCH ×2 (03:51→15:04)
[2017-06-12 05:44] LABS: Basophils % 0.1 %; Eosinophils % 0.1 %; Hematocrit 29.4 % (35.3-44.9); Immature Granulocytes % 0.5 % (0-4); Lymphocytes # 0.9 K/mcL (0.6-4.6); Lymphocytes % 6.3 %; Mean Corpuscular HGB Conc 31.3 g/dL (31.6-35.5); Mean Corpuscular Hemoglobin 30.2 pg (28.0-33.3); Mean Corpuscular Volume 96.4 fL (83.0-100.0); Mean Platelet Volume 13.2 fL (9.4-12.4); Monocytes # 0.7 K/mcL (0.0-1.3); Monocytes % 4.9 %; Neutrophils # 12.5 K/mcL (1.6-8.9); Platelet Count 142 K/mcL (140-400); Red Blood Count 3.05 M/mcL (3.82-4.97); Red Cell Distribution Width 14.4 % (11.5-14.5); Segmented Neutrophils % 88.1 %
[2017-06-12 05:48] LABS: Hemoglobin 9.2 g/dL (11.5-15.4)
[2017-06-12 06:07] LABS: Potassium 3.8 mEq/L (3.5-5.1)
[2017-06-12] MEDS: *HR* Heparin 5,000 UNIT/ML VIAL SQ SCH ×2 (06:25→15:04)
--- NOTE | 2017-06-12 12:30 | Electrocardiograph Report ---
[address] [place], [place] [address] Test Date: 2017-06-10 Pat Name: Silvia Charlton Department: 103 Room: 3A51 Gender: F Specialty Molder: AM : 1935 Requested By: Ba Masters Order Number: [id number] Reading MD: Go Skinner Measurements Intervals [place] Rate: 58 P: 56 MI: 142 QRS: -16 QRSD: 100 T: 115 QT: 421 QTc: 419 Interpretive Statements SINUS BRADYCARDIA WITH SINUS ARRHYTHMIA LATERAL ISCHEMIA Electronically Signed On 06-12-2017 12:28:54 EDT by Go Skinner
[2017-06-12 14:49] VITALS: BP 116/58
[2017-06-12 15:10] LABS: Calcium 8.1 mg/dL (8.6-10.3); Potassium 3.5 mEq/L (3.5-5.1)
--- NOTE | 2017-06-12 15:23 | Discharge Summary ---
- NOTES TO OUTPATIENT PROVIDER Notes to Outpatient Provider: Follow-up CBC in 3 days: hemoglobin. Follow-up BMP in 3 days: renal function and sodium. Follow-up blood pressure: ( Zestoretic was held on discharge because of renal function and BP was also low) Orders not resulted at time of discharge: Pending orders 06/11/17 12:15 Surgical Pathology [PTH] Routine 06/13/17 04:00 BMP [Basic Metabolic Panel] AM 0400 Complete Blood Count [HEME] AM 0400 06/14/17 04:00 BMP [Basic Metabolic Panel] AM 0400 Complete Blood Count [HEME] AM 0400 Date of Encounter: 06/12/17 Time of Encounter: 15:23 - Discharge Diagnosis (1) Acute cholecystitis Priority: Primary Status: Acute (2) CKD (chronic kidney disease) stage 3, GFR 30-59 ml/min Priority: Secondary Status: Acute (3) Hypertension Priority: Secondary Status: Acute Qualifiers: Hypertension type: essential hypertension Qualified Code(s): I10 - Essential (primary) hypertension (4) Diabetes Priority: Secondary Status: Acute Qualifiers: Diabetes mellitus type: type 2 Qualified Code(s): E11.9 - Type 2 diabetes mellitus without complications (5) Glaucoma Priority: Secondary Status: Acute Qualifiers: Glaucoma stage: stage unspecified Qualified Code(s): H40.10X0 - Unspecified open-angle glaucoma, stage unspecified (6) HLD (hyperlipidemia) Priority: Secondary Status: Acute Qualifiers: Qualified Code(s): E78.5 - Hyperlipidemia, unspecified (7) Hypothyroid Priority: Secondary Status: Acute Qualifiers: Hypothyroidism type: unspecified Qualified Code(s): E03.9 - Hypothyroidism , unspecified (8) DVT prophylaxis Priority: Secondary Status: Acute Hospital course: Patient is an 82-year-old female with past medical history significant for diabetes, glaucoma, hypertension, hyperlipidemia, hypothyroid and CDK stage III who presents to the ER on 06/10/17 due to abdominal pain and nausea/vomiting. Patient reports waking up this morning with right upper quadrant abdominal pain which she describes as achy which was constant with no relieving or provoking factors. Patient reported associated symptoms of nausea and vomiting but denied any chest pain or shortness of breath. Patient also denied any diarrhea or constipation. Patient was brought to the ER for further evaluation. In the ER, CT of the abdomen was done which showed cholelithiasis with mild to moderate distention of the gallbladder wall suggestive of mild gallbladder thickening with minimal pericholecystic injection, all suggestive of possible cholecystitis. Right upper quadrant ultrasound of the gallbladder showed sludge. Surgery was consult from the ER. Patient had laparoscopic cholecystectomy on 06/11 and tolerated procedure without issue. She did have elevation in creatinine which improved after on day of IV fluids monitoring. - Time Spent with Patient Total time spent providing and/or coordinating discharge services: - Discharge Medications Home Medications: Atorvastatin [Lipitor] 40 mg PO HS 06/10/17 [History] Brimonidine Tartrate [Alphagan P] 1 drop OP TID 06/10/17 [History] Glimepiride [Amaryl] 4 mg PO BID 06/10/17 [History] Latanoprost [Xalatan] 1 drop OP HS 06/10/17 [History] Levothyroxine [Synthroid] 100 mcg PO 0630 06/10/17 [History] Metformin HCl [Glucophage] 1,000 mg PO BID 06/10/17 [History] Timolol Maleate 0.5% 1 drop OP BID 06/10/17 [History] Vit C/E/Zn/Coppr/Lutein/Zeaxan [Preservision Areds 2 Softgel] 1 tab PO DAILY [History] Allergies/Adverse Reactions: 3 Allergy/AdvReac Type Severity Reaction Status Date / Time No Known Allergies Allergy Verified 06/10/17 12:50 Date of admission: 06/10/17 18:00 Primary care physician: Graciela Crespo Discharging clinician: Edwar Yi - Constitutional Vitals: Temp Pulse Resp BP Pulse Ox 97.5 F L 57 16 116/58 96 06/12/17 14:46 06/12/17 14:46 06/12/17 14:46 06/12/17 14:46 06/12/17 14:46 General appearance: Present: no acute distress - Head Head exam: Present: atraumatic, normocephalic - Eye Eye exam: Present: PERRL, conjuntiva pink, sclera anicteric Pupils: Present: PERRL - Neck Neck exam general surgery: Present: supple, trachea midline. Absent: lymphadenopathy - Respiratory Respiratory exam: Present: CTAB. Absent: accessory muscle use, rales, rhonchi, wheezes - Cardiovascular Cardiovascular exam: Present: RRR, +S1, +S2. Absent: diastolic murmur, gallop, rubs, systolic murmur - GI/Abdominal GI/Abdominal exam: Present: normal bowel sounds, soft, no peritoneal signs. Absent: distended, tenderness - Extremities Exam Extremities exam: Present: warm, radial pulses palpable and symmetrical. Absent : calf tenderness, cyanotic, pedal edema - Neurological Exam Neurological exam: Present: CN II-XII intact, oriented X3, no focal deficits. Absent: pronater drift, facial droop, speech deficit - Skin Skin exam: Present: dry, intact - Patient Status Disposition: Home, Self-Care Condition: Good Functional capacity at discharge: independent ambulation Overall status at discharge: patient is progressing back to baseline - Discharge Instructions Follow Up With: Graciela Crespo MD [Primary Care Provider] - - Diet and Activity Activity: other (as per Surgery instructions) Diet: advance to your usual diet
== END 2017-06-12 16:58 | disposition home or self-care (01) | DRG 418 ==
LOC: EMEROO 08:47 → 3ANU 08:47
PROVIDERS: ADMIT Hospitalist; ATTEND Student in an Organized Health Care Education/Training Program

== ENCOUNTER 2017-11-15 17:55 | Observation (INO) ==
--- NOTE | 2017-11-15 18:33 | Emergency Department Note ---
Disposition Clinical Impression: Pleural effusion, Weakness GI bleed Qualifiers: GI bleed type/associated pathology: unspecified gastrointestinal hemorrhage type Qualified Code(s): K92.2 - Gastrointestinal hemorrhage, unspecified Anemia Qualifiers: Anemia type: unspecified type Qualified Code(s): D64.9 - Anemia, unspecified Fluid overload Qualifiers: Hypervolemia type: other Qualified Code(s): E87.79 - Other fluid overload Disposition: Admitted As Inpatient General Adult HPI - General Chief complaint: ED Shortness of Breath/Dyspnea Stated complaint: JOANNE Time Seen by Provider: 11/15/17 18:13 - History of Present Illness Pain Scale: 0 - Related Data Home Medications Medication Instructions Recorded Confirmed Atorvastatin [Lipitor] 20 mg PO HS 06/10/17 11/15/17 Glimepiride [Amaryl] 4 mg PO BID 06/10/17 11/15/17 Latanoprost [Xalatan] 1 drop OP HS 06/10/17 11/15/17 Levothyroxine [Synthroid] 100 mcg PO 0630 06/10/17 11/15/17 Timolol Maleate 0.5% 1 drop OP BID 06/10/17 11/15/17 Vit C/E/Zn/Coppr/Lutein/Zeaxan 1 tab PO DAILY 06/10/17 11/15/17 [Preservision Areds 2 Softgel] Lisinopril/Hydrochlorothiazide 1 tab PO DAILY 11/15/17 11/15/17 [Zestoretic 20-25 mg Tablet] Previous Rx's Medication Instructions Recorded Acetaminophen [Tylenol] 650 mg PO Q6HR tablet 11/04/17 Aspirin 81 mg PO DAILY #30 tab.chew 11/04/17 Metoprolol XL (24 HR) Succ [Toprol 25 mg PO DAILY #30 tab.er.24h 11/04/17 Xl] Allergies Allergy/AdvReac Type Severity Reaction Status Date / Time No Known Allergies Allergy Verified 11/15/17 20:49 Past Medical History - Past Medical History Medical history: Reports: diabetes, hyperlipidemia, hypertension, migraine, myocardial infarction, renal disease, thyroid disease, other Surgical history: Reports: appendectomy, cholecystectomy, hysterectomy Psychiatric history: Reports: anxiety - Social History Smoking Status: Never smoker Smokeless Tobacco Status: No Alcohol use: Reports: none Drug use: Reports: none Course Vital Signs Temperature 97.8 F 11/15/17 17:57 Pulse Rate 65 11/15/17 17:57 Respiratory Rate 20 11/15/17 17:57 Blood Pressure 177/69 11/15/17 17:57 O2 Sat by Pulse Oximetry 95 11/15/17 17:57 Temperature 97.8 F 11/16/17 00:30 Pulse Rate 60 11/16/17 00:30 Respiratory Rate 18 11/16/17 00:30 Blood Pressure 151/71 11/16/17 00:30 O2 Sat by Pulse Oximetry 97 11/16/17 00:30 Oxygen Delivery Oxygen Delivery Room Air Medical Decision Making - Lab Data Result diagrams: 11/15/17 18:42 11/15/17 18:42 Lab Results 11/15/17 11/15/17 11/15/17 Range/Units 18:42 18:42 18:42 WBC 10.0 (4.3-11.1) K/mcL RBC 2.20 L (3.82-4.97) M/mcL Hgb 6.6 L (11.5-15.4) g/dL Hct 20.8 L (35.3-44.9) % MCV 94.5 (83.0-100.0) fL MCH 30.0 (28.0-33.3) pg MCHC 31.7 (31.6-35.5) g/dL RDW 17.1 H (11.5-14.5) % Plt Count 217 (140-400) K/mcL MPV 13.2 H (9.4-12.4) fL Immature Gran % 1.0 (0-4) % Seg Neutrophils % 73.9 % Lymphocytes % 14.1 % Monocytes % 8.6 % Eosinophils % 2.2 % Basophils % 0.2 % Neutrophils # 7.4 (1.6-8.9) K/mcL Lymphocytes # 1.4 (0.6-4.6) K/mcL Monocytes # 0.9 (0.0-1.3) K/mcL Eosinophils # 0.2 (0.0-0.6) K/mcL Basophils # 0.0 (0.0-0.2) K/mcL Nucleated RBCs/100 WBC 0.2 H (0) /100 WBC PT (9.4-12.1) Seconds INR APTT (26.0-36.0) Seconds D-Dimer (0-500) ng/mLFEU Sodium 137 (136-145) mEq/L Potassium 4.0 (3.5-5.1) mEq/L Chloride 102 (98-107) mEq/L Carbon Dioxide 27 (23-29) mEq/L BUN 45 H (8-23) mg/dL Creatinine 1.27 H (0.60-1.20) mg/dL Est GFR ( Amer) 49 L (> 60) Est GFR (Non-Af Amer) 40 L (> 60) BUN/Creatinine Ratio 35 H (6-26) Glucose 131 H (70-105) mg/dL Calculated Osmolality 297 (280-300) Calcium 8.5 L (8.6-10.3) mg/dL Total Bilirubin (0.3-1.0) mg/dL Direct Bilirubin (0.0-0.2) mg/dL Indirect Bilirubin (0.0-1.2) mg/dL AST (13-39) Units/L ALT (7-52) Units/L Alkaline Phosphatase (34-104) Units/L Troponin I < 0.03 (< 0.04) ng/mL B-Natriuretic Peptide 761 H (Less than 100) pg/mL Serum Total Protein (6.4-8.9) g/dL Albumin (3.5-5.7) g/dL Globulin (2.4-3.5) g/dL Albumin/Globulin Ratio (1.1-2.2) Stool Occult Bld Scrn (Negative) Blood Type Antibody Screen Crossmatch 11/15/17 11/15/17 11/15/17 Range/Units 18:42 19:00 20:58 WBC (4.3-11.1) K/mcL RBC (3.82-4.97) M/mcL Hgb (11.5-15.4) g/dL Hct (35.3-44.9) % MCV (83.0-100.0) fL MCH (28.0-33.3) pg MCHC (31.6-35.5) g/dL RDW (11.5-14.5) % Plt Count (140-400) K/mcL MPV (9.4-12.4) fL Immature Gran % (0-4) % Seg Neutrophils % % Lymphocytes % % Monocytes % % Eosinophils % % Basophils % % Neutrophils # (1.6-8.9) K/mcL Lymphocytes # (0.6-4.6) K/mcL Monocytes # (0.0-1.3) K/mcL Eosinophils # (0.0-0.6) K/mcL Basophils # (0.0-0.2) K/mcL Nucleated RBCs/100 WBC (0) /100 WBC PT 21.9 H (9.4-12.1) Seconds INR 1.9 APTT 37.6 H (26.0-36.0) Seconds D-Dimer 2144 H (0-500) ng/mLFEU Sodium (136-145) mEq/L Potassium (3.5-5.1) mEq/L Chloride (98-107) mEq/L Carbon Dioxide (23-29) mEq/L BUN (8-23) mg/dL Creatinine (0.60-1.20) mg/dL Est GFR ( Amer) (> 60) Est GFR (Non-Af Amer) (> 60) BUN/Creatinine Ratio (6-26) Glucose (70-105) mg/dL Calculated Osmolality (280-300) Calcium (8.6-10.3) mg/dL Total Bilirubin (0.3-1.0) mg/dL Direct Bilirubin (0.0-0.2) mg/dL Indirect Bilirubin (0.0-1.2) mg/dL AST (13-39) Units/L ALT (7-52) Units/L Alkaline Phosphatase (34-104) Units/L Troponin I (< 0.04) ng/mL B-Natriuretic Peptide (Less than 100) pg/mL Serum Total Protein (6.4-8.9) g/dL Albumin (3.5-5.7) g/dL Globulin (2.4-3.5) g/dL Albumin/Globulin Ratio (1.1-2.2) Stool Occult Bld Scrn Positive A (Negative) Blood Type O POSITIVE Antibody Screen NEGATIVE Crossmatch See Detail 11/15/17 Range/Units 20:59 WBC (4.3-11.1) K/mcL RBC (3.82-4.97) M/mcL Hgb (11.5-15.4) g/dL Hct (35.3-44.9) % MCV (83.0-100.0) fL MCH (28.0-33.3) pg MCHC (31.6-35.5) g/dL RDW (11.5-14.5) % Plt Count (140-400) K/mcL MPV (9.4-12.4) fL Immature Gran % (0-4) % Seg Neutrophils % % Lymphocytes % % Monocytes % % Eosinophils % % Basophils % % Neutrophils # (1.6-8.9) K/mcL Lymphocytes # (0.6-4.6) K/mcL Monocytes # (0.0-1.3) K/mcL Eosinophils # (0.0-0.6) K/mcL Basophils # (0.0-0.2) K/mcL Nucleated RBCs/100 WBC (0) /100 WBC PT (9.4-12.1) Seconds INR APTT (26.0-36.0) Seconds D-Dimer (0-500) ng/mLFEU Sodium (136-145) mEq/L Potassium (3.5-5.1) mEq/L Chloride (98-107) mEq/L Carbon Dioxide (23-29) mEq/L BUN (8-23) mg/dL Creatinine (0.60-1.20) mg/dL Est GFR ( Amer) (> 60) Est GFR (Non-Af Amer) (> 60) BUN/Creatinine Ratio (6-26) Glucose (70-105) mg/dL Calculated Osmolality (280-300) Calcium (8.6-10.3) mg/dL Total Bilirubin 0.4 (0.3-1.0) mg/dL Direct Bilirubin 0.2 (0.0-0.2) mg/dL Indirect Bilirubin 0.2 (0.0-1.2) mg/dL AST 15 (13-39) Units/L ALT 10 (7-52) Units/L Alkaline Phosphatase 56 (34-104) Units/L Troponin I (< 0.04) ng/mL B-Natriuretic Peptide (Less than 100) pg/mL Serum Total Protein 4.7 L (6.4-8.9) g/dL Albumin 2.7 L (3.5-5.7) g/dL Globulin 2.0 L (2.4-3.5) g/dL Albumin/Globulin Ratio 1.4 (1.1-2.2) Stool Occult Bld Scrn (Negative) Blood Type Antibody Screen Crossmatch Attestation Statement - Attestation Attestation: I examined this patient and my medical decision-making was reviewed with the [employer] SAL[employer] REPRESENTATIVE [employer] ASSESSOR/PA/Advanced Practice Nurse/Resident Physician. I agree with the documented findings, disposition and treatment plan as described except to the extent set forth below. I did see the patient on arrival and also spoke with her sister and her son and she was just discharged from [facility] 5 days ago and I did review the previous record. She does have history of atrial fibrillation. Abdominal surgery 3 weeks ago. She presents today with shortness of breath with orthopnea and worsened with exertion. Does have lower extremity peripheral edema. She denies any chest pain or tightness or discomfort or pressure. Mild cough. Workup initiated with labs, chest x-ray. I did review her EKG which shows a paced rhythm with a rate of 60. Patient does appear weak but has not taken back or in any respiratory distress. We will watch closely here on the monitor. 183
[2017-11-15 19:27] LABS: Basophils % 0.2 %; Eosinophils # 0.2 K/mcL (0.0-0.6); Eosinophils % 2.2 %; Hematocrit 20.8 % (35.3-44.9); Hemoglobin 6.6 g/dL (11.5-15.4); Lymphocytes # 1.4 K/mcL (0.6-4.6); Lymphocytes % 14.1 %; Mean Corpuscular HGB Conc 31.7 g/dL (31.6-35.5); Mean Platelet Volume 13.2 fL (9.4-12.4); Monocytes # 0.9 K/mcL (0.0-1.3); Monocytes % 8.6 %; Neutrophils # 7.4 K/mcL (1.6-8.9); Nucleated Red Blood Cells 0.2 /100 WBC (0); Platelet Count 217 K/mcL (140-400); Red Cell Distribution Width 17.1 % (11.5-14.5); Segmented Neutrophils % 73.9 %
[2017-11-15 19:28] LABS: Mean Corpuscular Volume 94.5 fL (83.0-100.0)
[2017-11-15 19:31] LABS: INR 1.9; Prothrombin Time 21.9 Seconds (9.4-12.1)
[2017-11-15 19:33] LABS: Activated Partial Thrombo Time 37.6 Seconds (26.0-36.0)
[2017-11-15 19:45] LABS: Troponin I < 0.03 ng/mL (< 0.04)
[2017-11-15 19:48] LABS: BUN/Creatinine Ratio 35 (6-26); Blood Urea Nitrogen 45 mg/dL (8-23); Calcium 8.5 mg/dL (8.6-10.3); Carbon Dioxide 27 mEq/L (23-29); Chloride 102 mEq/L (98-107); Glucose 131 mg/dL (70-105); Osmolality,Calculated 297 (280-300); Sodium 137 mEq/L (136-145); eGFR For Non-African Americans 40 (> 60)
[2017-11-15] MEDS ORDERED: Isovue-370 500 ML INFUS..BTL IV ONE (19:58)
[2017-11-15] MEDS ORDERED: 0.9 % Sodium Chloride 1,000 ML IV ONE (20:03)
[2017-11-15] MEDS ORDERED: Pantoprazole 40 MG VIAL IVP ONE (20:03)
--- NOTE | 2017-11-15 20:49 | Emergency Department Note ---
Disposition Clinical Impression: Pleural effusion, Weakness GI bleed Qualifiers: GI bleed type/associated pathology: unspecified gastrointestinal hemorrhage type Qualified Code(s): K92.2 - Gastrointestinal hemorrhage, unspecified Anemia Qualifiers: Anemia type: unspecified type Qualified Code(s): D64.9 - Anemia, unspecified Fluid overload Qualifiers: Hypervolemia type: other Qualified Code(s): E87.79 - Other fluid overload Disposition: Admitted As Inpatient Time of Disposition: 00:14 General Adult HPI - General Chief complaint: ED Shortness of Breath/Dyspnea Stated complaint: JOANNE Time Seen by Provider: 11/15/17 18:13 Source: patient, family, EMS Mode of arrival: EMS Limitations: no limitations Nursing Notes Reviewed: Yes Vital Signs Reviewed: Yes - History of Present Illness HPI Narrative: Patient is an 82-year-old female with a past medical history of colon cancer with recent colectomy, atrial fibrillation, pacemaker and anemia presents to the emergency department for evaluation of weakness has been going on for the past week. According to the patient patient family she was recently admitted to this hospital in which she was seen by and underwent colorectal surgery due to colon cancer. At that time the patient was also being treated for an STEMI as well as atrial fibrillation in which the resident to initiate heparin given her recent surgery and she was sent to [facility] in which she had a pacemaker placed and was started on Eliquis discharge home. According to the patient she was taken off her diuretic medication after discharge from [facility]. Patient states that since being discharged she has been having increasing weakness, shortness of breath and also had a dark bowel movement yesterday. She denies any fevers, chills, chest pain, shortness of breath, cough, abdominal pain, back pain, urinary symptoms, or diarrhea. Pain Scale: 1 - Related Data Home Medications Medication Instructions Recorded Confirmed Atorvastatin [Lipitor] 20 mg PO HS 06/10/17 11/15/17 Glimepiride [Amaryl] 4 mg PO BID 06/10/17 11/15/17 Latanoprost [Xalatan] 1 drop OP HS 06/10/17 11/15/17 Levothyroxine [Synthroid] 100 mcg PO 0630 06/10/17 11/15/17 Timolol Maleate 0.5% 1 drop OP BID 06/10/17 11/15/17 Vit C/E/Zn/Coppr/Lutein/Zeaxan 1 tab PO DAILY 06/10/17 11/15/17 [Preservision Areds 2 Softgel] Lisinopril/Hydrochlorothiazide 1 tab PO DAILY 11/15/17 11/15/17 [Zestoretic 20-25 mg Tablet] Previous Rx's Medication Instructions Recorded Acetaminophen [Tylenol] 650 mg PO Q6HR tablet 11/04/17 Aspirin 81 mg PO DAILY #30 tab.chew 11/04/17 Metoprolol XL (24 HR) Succ [Toprol 25 mg PO DAILY #30 tab.er.24h 11/04/17 Xl] Allergies Allergy/AdvReac Type Severity Reaction Status Date / Time No Known Allergies Allergy Verified 11/15/17 20:49 All systems ED: reviewed and negative except as stated. Review of Systems: As Per HPI Constitutional: Denies: fever, chills Cardiovascular: Denies: chest pain, palpitations Respiratory: Denies: cough, dyspnea Gastrointestinal: Reports: melena. Denies: abdominal pain, nausea, vomiting Genitourinary: Denies: urgency, dysuria, frequency Musculoskeletal: Denies: back pain, neck pain Integumentary: Reports: other (surgical wound) Past Medical History - Past Medical History Attestation: Yes The following information was validated with the patient. Medical history: Reports: diabetes, hyperlipidemia, hypertension, migraine, myocardial infarction, renal disease, thyroid disease, other Surgical history: Reports: appendectomy, cholecystectomy, hysterectomy Psychiatric history: Reports: anxiety - Social History Smoking Status: Never smoker Smokeless Tobacco Status: No Alcohol use: Reports: none Drug use: Reports: none Physical Exam CONSTITUTIONAL: Patient appears weak and pale. Speaks in full sentences. Vital signs are within normal. limits at this time. HEAD: Normocephalic; atraumatic EYES: PERRL, no scleral icterus NOSE: The nose is normal in appearance without rhinorrhea NECK: No JVD or distended neck veins RESP: Normal chest excursion with respiration; breath sounds clear and equal bilaterally; no wheezes, rhonchi, or rales. CARD: Regular rhythm, without murmurs, rub or gallop ABD: Non-distended; non-tender, soft, without rigidity, rebound or guarding,no pulsatile mass. Well healing surgical scar with baljinder in place. No surrounding erythema, induration, drainage or signs of infection. CHEST: No pain with palpation RECTAL: No bright red blood in the vault. Melena on finger exam. No obvious hemorrhoid or fissure. SKIN: Pallor; warm and dry without diaphoresis ; no apparent lesions EXTREMITIES: Pulses are 2 plus and equal times 4 extremities, patient has bilateral 2+ pitting edema or calf muscle pain Course Course Narrative: Discussed with the patient that given her recent hospitalization and surgery and her dyspnea associated with her generalized weakness plan is times to evaluate her for a pulmonary embolism. Given her pallor and her recent placement on Eliquis will also evaluate for any signs of anemia. The patient did admit after this discussion that she receive blood transfusions prior to leaving [facility]. Discussed with the patient and also concerned that she may be in fluid overload since she has been taken off medications and placed on new ones and has this new lower extremity edema bilaterally and this dyspnea. Patient agrees with the current plan. - Reevaluation(s) Reevaluation #1: I discussed with the patient that her labs are resulting and she at this time has a hemoglobin of 6.6. Discussed plan to type and screen the patient and order her 1 packed red blood cell unit. Discussed that she also has positive Hemoccult stool some concern that she is bleeding from potentially a GI bleed given her new medication changes as well as her dark stools. Discussed that currently her waiting for her CTA results. Discussed that I will also order her 20 mg of IV Lasix for fluid overload given that her lower extremities are edematous and she has dyspnea and will be undergoing a blood transfusion. Patient continues to remain stable at this time. Also give the patient 1 dose of Protonix with concerns for GI bleed. Time: 20:49 Reevaluation #2: Patient's CTA of her chest was negative for PE but did show bilateral pleural effusions as well as a small amount of fluid around the heart. Discussed the plan at this time is to admit the patient with concerns for GI bleed in the setting of anemia receiving a blood transfusion. Discussed that I also gave her a dose of Protonix in the emergency department. She is also given 20 mg of IV Lasix. Hospitalist requested I added on a CT of the abdomen and pelvis to make sure the patient does not have a GI bleed and he will follow-up with the imaging in house. Time: 22:11 Vital Signs Temperature 97.8 F 11/15/17 17:57 Pulse Rate 65 11/15/17 17:57 Respiratory Rate 20 11/15/17 17:57 Blood Pressure 177/69 11/15/17 17:57 O2 Sat by Pulse Oximetry 95 11/15/17 17:57 Temperature 97.4 F L 11/15/17 23:17 Pulse Rate 60 11/15/17 23:17 Respiratory Rate 18 11/15/17 23:17 Blood Pressure 148/67 11/15/17 23:17 O2 Sat by Pulse Oximetry 99 11/15/17 23:17 Oxygen Delivery Oxygen Delivery Room Air Medical Decision Making - Medical Records Medical records reviewed: Yes I reviewed the patient's medical records. - Lab Data Lab results reviewed: Yes I reviewed the patient's lab results. Result diagrams: 11/15/17 18:42 11/15/17 18:42 Lab Results 11/15/17 11/15/17 11/15/17 Range/Units 18:42 18:42 18:42 WBC 10.0 (4.3-11.1) K/mcL RBC 2.20 L (3.82-4.97) M/mcL Hgb 6.6 L (11.5-15.4) g/dL Hct 20.8 L (35.3-44.9) % MCV 94.5 (83.0-100.0) fL MCH 30.0 (28.0-33.3) pg MCHC 31.7 (31.6-35.5) g/dL RDW 17.1 H (11.5-14.5) % Plt Count 217 (140-400) K/mcL MPV 13.2 H (9.4-12.4) fL Immature Gran % 1.0 (0-4) % Seg Neutrophils % 73.9 % Lymphocytes % 14.1 % Monocytes % 8.6 % Eosinophils % 2.2 % Basophils % 0.2 % Neutrophils # 7.4 (1.6-8.9) K/mcL Lymphocytes # 1.4 (0.6-4.6) K/mcL Monocytes # 0.9 (0.0-1.3) K/mcL Eosinophils # 0.2 (0.0-0.6) K/mcL Basophils # 0.0 (0.0-0.2) K/mcL Nucleated RBCs/100 WBC 0.2 H (0) /100 WBC PT (9.4-12.1) Seconds INR APTT (26.0-36.0) Seconds D-Dimer (0-500) ng/mLFEU Sodium 137 (136-145) mEq/L Potassium 4.0 (3.5-5.1) mEq/L Chloride 102 (98-107) mEq/L Carbon Dioxide 27 (23-29) mEq/L BUN 45 H (8-23) mg/dL Creatinine 1.27 H (0.60-1.20) mg/dL Est GFR ( Amer) 49 L (> 60) Est GFR (Non-Af Amer) 40 L (> 60) BUN/Creatinine Ratio 35 H (6-26) Glucose 131 H (70-105) mg/dL Calculated Osmolality 297 (280-300) Calcium 8.5 L (8.6-10.3) mg/dL Total Bilirubin (0.3-1.0) mg/dL Direct Bilirubin (0.0-0.2) mg/dL Indirect Bilirubin (0.0-1.2) mg/dL AST (13-39) Units/L ALT (7-52) Units/L Alkaline Phosphatase (34-104) Units/L Troponin I < 0.03 (< 0.04) ng/mL B-Natriuretic Peptide 761 H (Less than 100) pg/mL Serum Total Protein (6.4-8.9) g/dL Albumin (3.5-5.7) g/dL Globulin (2.4-3.5) g/dL Albumin/Globulin Ratio (1.1-2.2) Stool Occult Bld Scrn (Negative) Blood Type Antibody Screen Crossmatch 11/15/17 11/15/17 11/15/17 Range/Units 18:42 19:00 20:58 WBC (4.3-11.1) K/mcL RBC (3.82-4.97) M/mcL Hgb (11.5-15.4) g/dL Hct (35.3-44.9) % MCV (83.0-100.0) fL MCH (28.0-33.3) pg MCHC (31.6-35.5) g/dL RDW (11.5-14.5) % Plt Count (140-400) K/mcL MPV (9.4-12.4) fL Immature Gran % (0-4) % Seg Neutrophils % % Lymphocytes % % Monocytes % % Eosinophils % % Basophils % % Neutrophils # (1.6-8.9) K/mcL Lymphocytes # (0.6-4.6) K/mcL Monocytes # (0.0-1.3) K/mcL Eosinophils # (0.0-0.6) K/mcL Basophils # (0.0-0.2) K/mcL Nucleated RBCs/100 WBC (0) /100 WBC PT 21.9 H (9.4-12.1) Seconds INR 1.9 APTT 37.6 H (26.0-36.0) Seconds D-Dimer 2144 H (0-500) ng/mLFEU Sodium (136-145) mEq/L Potassium (3.5-5.1) mEq/L Chloride (98-107) mEq/L Carbon Dioxide (23-29) mEq/L BUN (8-23) mg/dL Creatinine (0.60-1.20) mg/dL Est GFR ( Amer) (> 60) Est GFR (Non-Af Amer) (> 60) BUN/Creatinine Ratio (6-26) Glucose (70-105) mg/dL Calculated Osmolality (280-300) Calcium (8.6-10.3) mg/dL Total Bilirubin (0.3-1.0) mg/dL Direct Bilirubin (0.0-0.2) mg/dL Indirect Bilirubin (0.0-1.2) mg/dL AST (13-39) Units/L ALT (7-52) Units/L Alkaline Phosphatase (34-104) Units/L Troponin I (< 0.04) ng/mL B-Natriuretic Peptide (Less than 100) pg/mL Serum Total Protein (6.4-8.9) g/dL Albumin (3.5-5.7) g/dL Globulin (2.4-3.5) g/dL Albumin/Globulin Ratio (1.1-2.2) Stool Occult Bld Scrn Positive A (Negative) Blood Type O POSITIVE Antibody Screen NEGATIVE Crossmatch See Detail 11/15/17 Range/Units 20:59 WBC (4.3-11.1) K/mcL RBC (3.82-4.97) M/mcL Hgb (11.5-15.4) g/dL Hct (35.3-44.9) % MCV (83.0-100.0) fL MCH (28.0-33.3) pg MCHC (31.6-35.5) g/dL RDW (11.5-14.5) % Plt Count (140-400) K/mcL MPV (9.4-12.4) fL Immature Gran % (0-4) % Seg Neutrophils % % Lymphocytes % % Monocytes % % Eosinophils % % Basophils % % Neutrophils # (1.6-8.9) K/mcL Lymphocytes # (0.6-4.6) K/mcL Monocytes # (0.0-1.3) K/mcL Eosinophils # (0.0-0.6) K/mcL Basophils # (0.0-0.2) K/mcL Nucleated RBCs/100 WBC (0) /100 WBC PT (9.4-12.1) Seconds INR APTT (26.0-36.0) Seconds D-Dimer (0-500) ng/mLFEU Sodium (136-145) mEq/L Potassium (3.5-5.1) mEq/L Chloride (98-107) mEq/L Carbon Dioxide (23-29) mEq/L BUN (8-23) mg/dL Creatinine (0.60-1.20) mg/dL Est GFR ( Amer) (> 60) Est GFR (Non-Af Amer) (> 60) BUN/Creatinine Ratio (6-26) Glucose (70-105) mg/dL Calculated Osmolality (280-300) Calcium (8.6-10.3) mg/dL Total Bilirubin 0.4 (0.3-1.0) mg/dL Direct Bilirubin 0.2 (0.0-0.2) mg/dL Indirect Bilirubin 0.2 (0.0-1.2) mg/dL AST 15 (13-39) Units/L ALT 10 (7-52) Units/L Alkaline Phosphatase 56 (34-104) Units/L Troponin I (< 0.04) ng/mL B-Natriuretic Peptide (Less than 100) pg/mL Serum Total Protein 4.7 L (6.4-8.9) g/dL Albumin 2.7 L (3.5-5.7) g/dL Globulin 2.0 L (2.4-3.5) g/dL Albumin/Globulin Ratio 1.4 (1.1-2.2) Stool Occult Bld Scrn (Negative) Blood Type Antibody Screen Crossmatch - Radiology Data Radiology results reviewed: Yes I reviewed the patient's radiology results. Chest X-Ray 11/15/17 18:27 IMPRESSION: 1. Small right pleural effusion with associated atelectasis. 2. Likely trace left effusion and atelectasis. 3. Left cardiac pacer device in place with no pneumothorax identified. D/ / Bharathi Tran MD / Bharathi Tran MD Interpreting Provider: Bharathi Tran MD Chest CTA 11/15/17 19:58 IMPRESSION: 1. No evidence for pulmonary embolism. 2. Changes suggesting mild pulmonary edema. 3. Moderate to large right and small left pleural effusion with associated atelectasis. 4. Small mildly complex pericardial effusion which may reflect small hemopericardium given recent history of pacemaker placement. 5. Postsurgical changes of left pacemaker placement with expected mild stranding in subcutaneous gas within the soft tissues of the left chest wall. No pneumothorax identified. D/ / Bharathi Tran MD / Bharathi Tran MD Interpreting Provider: Bharathi Tran MD - EKG Data EKG #1 EKG attestation: Yes I reviewed and interpreted this EKG. EKG results narrative: EKG done at 18:25 shows atrial paced rhythm at 60 bpm. No signs of ischemia.
[2017-11-15] MEDS ORDERED: Furosemide 20 MG/2 ML VIAL IVP ONE (21:33)
[2017-11-15 21:43] LABS: Albumin 2.7 g/dL (3.5-5.7); Albumin/Globulin Ratio 1.4 (1.1-2.2); Bilirubin,Direct 0.2 mg/dL (0.0-0.2); Bilirubin,Indirect 0.2 mg/dL (0.0-1.2); Bilirubin,Total 0.4 mg/dL (0.3-1.0); Total Protein 4.7 g/dL (6.4-8.9)
[2017-11-16] MEDS ORDERED: 0.9 % Sodium Chloride 500 ML ONE ×2 (01:36→06:03)
[2017-11-16] MEDS ORDERED: Acetaminophen 325 MG TABLET PO PRN (03:10)
[2017-11-16] MEDS ORDERED: Dextrose Gel 15 GM/37.5 ML TUBE PO PRN ×2 (03:10)
[2017-11-16] MEDS ORDERED: D5% in Water 1,000 ML IVC PRN (03:10)
[2017-11-16] MEDS ORDERED: *HR* Dextrose 50 % in Water (Syg) 50 ML SYRINGE IVP PRN (03:10)
[2017-11-16] MEDS ORDERED: Naloxone 0.4 MG/ML INJ IVP PRN (03:10)
--- NOTE | 2017-11-16 05:01 | Internal Med History&Physical ---
Date of Encounter: 11/16/17 Time of Encounter: 01:30 Internal Medicine - H&P: HPI Chief complaint: weakness; SOB Admitted From: Emergency Dept Plans for Post Hospital Care: Home History of present illness: Ms. Charlton is a 82 year old female who presents to the ER tonight with complaints of profound and worsening weakness, mild dyspnea, and reports of melena. Workup in ER revealed patient to be profoundly anemic. Stool Hemoccult was positive as well. Patient was started on blood transfusion and admitted to hospitalist service. Upon my assessment of the patient, she reports recent onset of melena and stomach upset. She denies any hematemesis, coffee-ground emesis, or hematochezia. 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 During that hospital stay a few weeks ago, she developed atrial fibrillation with rapid ventricular response, and cardiology was consulted to help comanage patient. After discharge, she developed syncopal episodes at home prompting return to her local ER at [facility]. She developed significant bradycardia prompting her to be transported to [facility] in [place] where she underwent pacemaker implantation and was anticoagulated for atrial fibrillation with presumed slow ventricular response. Shortly after starting Eliquis, she developed the melena. Over the following several days, she has become profoundly weak, lightheaded, dizzy, and short of breath. She had recent colonoscopy showing sigmoid mass. However, she has not had recent upper endoscopy. Upon further history, patient does report history of stomach ulcers many years ago. She also has been using anti-inflammatory drugs over-the- counter for quite some time. Past Med Surg Social Fam HX - Past Medical History Attestation: Yes The following information was validated with the patient. Source: patient, old records reviewed Medical history: cancer, diabetes, hyperlipidemia, hypertension, migraine, myocardial infarction, renal disease, thyroid disease, other Additional medical history: COLON CANCER WITH BOWEL RESECTION 10/25/2017, MACULAR DEGENERATION Psychiatric history: anxiety - Past Surgical History Surgical History: appendectomy, cholecystectomy, hysterectomy - Social History Smoking Status: Never smoker Smokeless Tobacco Status: No Alcohol use: none Drug use: none Current living situation: Home, With Family Activity Level: Independent ambulation Recent Out of Country Travel Within the Last 8 Weeks: No - Family History Mother Living Status: Hx Family Cancer: Yes (Kidney) Brother Living Status: Hx Family Cancer: Yes Father Living Status: Hx Family Respiratory Disorders: Yes Hx Family Cancer: Yes (Lung cancer) Internal Medicine - H&P: Meds Atorvastatin [Lipitor] 20 mg PO HS 06/10/17 [History] Glimepiride [Amaryl] 4 mg PO BID 06/10/17 [History] Latanoprost [Xalatan] 1 drop OP HS 06/10/17 [History] Levothyroxine [Synthroid] 100 mcg PO 0630 06/10/17 [History] Timolol Maleate 0.5% 1 drop OP BID 06/10/17 [History] Vit C/E/Zn/Coppr/Lutein/Zeaxan [Preservision Areds 2 Softgel] 1 tab PO DAILY [History] Acetaminophen [Tylenol] 650 mg PO Q6HR tablet 11/04/17 [Rx] Aspirin 81 mg PO DAILY #30 tab.chew 11/04/17 [Rx] Metoprolol XL (24 HR) Succ [Toprol Xl] 25 mg PO DAILY #30 tab.er.24h 11/04/17 [ Rx] Lisinopril/Hydrochlorothiazide [Zestoretic 20-25 mg Tablet] 1 tab PO DAILY 11/15 [History] 3 Allergy/AdvReac Type Severity Reaction Status Date / Time No Known Allergies Allergy Verified 11/15/17 20:49 - Constitutional Constitutional: fatigue, weakness, no chills, no fever(s) - EENT Eyes: no blurry vision, no change in vision Ears: no ear pain, no tinnitus Nose, mouth and throat: no nasal congestion, no sinus pressure, no sore throat - Cardiovascular Cardiovascular ROS IM: dyspnea, dyspnea on exertion, lightheadedness, no chest pain, no edema, no orthopnea, no paroxysmal nocturnal dyspnea, no syncope - Respiratory Respiratory: no hemoptysis, no chest congestion, no excessive phlegm production - Gastrointestinal Gastrointestinal: melena, no abdominal pain, no coffee ground emesis, no diarrhea, no hematemesis, no hematochezia, no nausea, no vomiting - Genitourinary Genitourinary: no dysuria, no flank pain, no hematuria - Musculoskeletal Musculoskeletal ROS IM: no arthralgias, no back pain - Integumentary Integumentary IM: no rash, no jaundice - Neurological Neurological ROS: dizziness, no focal weakness, no frequent falls, no headache(s ) - Psychiatric Psychiatric: no anxiety, no depression - Endocrine Endocrine IM: no polydipsia, no polyuria - Hematologic/Lymphatic Hematologic/Lymphatic: easy bruising - Allergic/Immunologic Allergic/Immunologic: GI upset with certain foods - Constitutional Vitals: Temp Pulse Resp BP Pulse Ox 97.5 F L 60 16 163/61 96 11/16/17 02:37 11/16/17 02:37 11/16/17 02:37 11/16/17 02:22 11/16/17 02:37 General appearance: Present: cooperative, A&O X 3, pleasant, answers questions appropriately Exam: pale; weak; no acute distress - Head Head exam: Present: normal inspection - Eye Eye exam: Present: EOMI, PERRL. Absent: scleral icterus, conjuntiva pink (pale) Pupils: Present: normal accommodation - ENT ENT exam: Present: mucous membranes dry, normal exam - Neck Neck exam general surgery: Present: full ROM, supple. Absent: tenderness, nuchal rigidity, thyromegaly - Respiratory Respiratory exam: Present: CTAB. Absent: chest wall tenderness, rales, rhonchi , wheezes - Cardiovascular Cardiovascular exam: Present: RRR, +S1, +S2. Absent: diastolic murmur, systolic murmur Additional comments: palpable pacemaker in left upper chest; bruising in that area; wound clean/dry/ without erythema - GI/Abdominal GI/Abdominal exam: Present: normal bowel sounds, soft. Absent: guarding, hepatomegaly, mass, rebound, splenomegaly, tenderness Additional comments: abdominal wound clean/dry/without sign of infection - Extremities Exam Extremities exam: Present: full ROM, warm, radial pulses palpable and symmetrical. Absent: calf tenderness, joint swelling, pedal edema, tenderness - Back Exam Back exam: Absent: CVA tenderness (L), CVA tenderness (R) - Neurological Exam Neurological exam: Present: alert, CN II-XII intact, oriented X3, no focal deficits - Psychiatric Psychiatric exam: Present: normal affect, normal mood - Skin Skin exam: Present: dry, intact, warm Internal Med - H&P Results - Labs CBC & Chem 7: 11/15/17 18:42 11/15/17 18:42 - Impressions ITS Impressions Abdomen CT 11/16/17 22:10 IMPRESSION: 1. No acute findings within the abdomen. 2. Pericardial effusion, possibly hemorrhagic effusion. 3. Bilateral pleural effusions with bilateral atelectasis. D/ / Kyle Santa MD / Kyle Santa MD Interpreting Provider: Kyle Santa MD - Diagnostic Studies CT scan - chest Status: image reviewed by me (no PE; small to moderate pericardial effusion) - Assessment and plan (1) GI bleed Current Visit: Yes Status: Acute Assessment and plan: 1. Will stop Eliquis for now. 2. Transfuse PRBC x 3 units. 3. Monitor serial H/H. 4. Will place on Protonix drip. 5. Consult Dr. Cai/pebbles for EGD. 6. Monitor on telemetry. Qualifiers: GI bleed type/associated pathology: melena Qualified Code(s): K92.1 - Melena (2) Atrial fibrillation Current Visit: Yes Status: Chronic Assessment and plan: 1. S/P pacemaker implantation. 2. Stop Eliquis due to GI bleed. 3. Rate control as necessary while maintaining hemodynamic stability. Qualifiers: Atrial fibrillation type: chronic Qualified Code(s): I48.2 - Chronic atrial fibrillation (3) Weakness Current Visit: Yes Status: Acute Assessment and plan: 1. Symptom onset correlates with melena/GI bleed. 2. Transfuse as above. 3. Reassess after stabilization. May need PT/OT consults. (4) Pericardial effusion Current Visit: Yes Status: Acute Assessment and plan: 1. Noted on CT chest. 2. Will order ECHO to further evaluate. (5) DVT prophylaxis Current Visit: Yes Status: Acute Assessment and plan: 1. EPCD's. 2. Eliquis stopped due to GI bleed.
[2017-11-16] MEDS: Pantoprazole 40 MG in 0.9 % Sodium Chloride Mini Bag 100 ML IVC SCH ×2 (05:59→09:16)
[2017-11-16] MEDS: Insulin LISPRO 300 UNITS/3 ML VIAL SQ SCH ×3 (06:15→16:20)
[2017-11-16 06:24] LABS: Basophils % 0.3 %; Eosinophils # 0.3 K/mcL (0.0-0.6); Hematocrit 26.6 % (35.3-44.9); Immature Granulocytes % 0.8 % (0-4); Lymphocytes # 1.5 K/mcL (0.6-4.6); Mean Corpuscular HGB Conc 33.1 g/dL (31.6-35.5); Mean Corpuscular Hemoglobin 29.4 pg (28.0-33.3); Mean Platelet Volume 12.9 fL (9.4-12.4); Monocytes # 0.9 K/mcL (0.0-1.3); Monocytes % 10.7 %; Neutrophils # 5.9 K/mcL (1.6-8.9); Nucleated Red Blood Cells 0.2 /100 WBC (0); Platelet Count 179 K/mcL (140-400); Red Blood Count 2.99 M/mcL (3.82-4.97); Red Cell Distribution Width 18.5 % (11.5-14.5); Segmented Neutrophils % 68.2 %
[2017-11-16 06:29] LABS: INR 1.6; Prothrombin Time 17.6 Seconds (9.4-12.1)
[2017-11-16 06:32] LABS: Activated Partial Thrombo Time 35.1 Seconds (26.0-36.0)
[2017-11-16 06:48] LABS: Hemoglobin 8.8 g/dL (11.5-15.4)
--- NOTE | 2017-11-16 07:54 | Event Note ---
<Izabella Rciks - Last Filed: 11/16/17 13:34> Date of Encounter: 11/16/17 Time of Encounter: 10:25 I saw evaluated and examined this patient and my medical decision-making was reviewed with the Resident Physician, Danish Hall. I agree with the documented findings, disposition and treatment plan as described except to any changes set forth below. We independently had [id number] contact with the patient. <Danish Hall - Last Filed: 11/16/17 14:33> Date of Encounter: 11/16/17 Time of Encounter: 09:00 Subjective/interval history: 82 year old female who prsented to the ED for 1 week onset of weakness and reported 1 day of dark stools. She was recently admitted 10/24 for open sigmoidectomy with Dr. Mast for near obstructing colonic mass; post-op course involved ileus, afib-rvr, NSTEMI, conservatively treated receiving ASA and Toprol. Upon discharge 11/04, patient developed slow heart rate and was admitted to [facility] where she received a PPM and was started on Eliquis. She was subsequently discharged to home, developed dark stools x1 day per patient in addition to lightheadedness and fatigue. She went to [facility] ED where she was found to have a +stool occult with hgb 6.6, admitted for GI bleed. She was also noted to have hx of ulcers in the distant past. She denies hematemesis Patient is receiving 3U PRBC, H&H q8h. Surgery plans to see her today with tentative plan for scoping. O: Gen - alert and oriented x3; mild distress, answers questions appropriately CV - RRR, HR in 60s, S1 and S2, no gallop, rub, murmur Lung - normal chest wall excursion, CTAB Abd - non-tender to palpation, non-distended, no hepatosplenomegaly Skin - no petechiae, no tenting, no cyanosis A/P: 1. GI Bleed recent history of Eliquis initiation at [facility] for afib melana on pt hx recently positive stool occult -held Eliquis -transfuse 3U pRBC -H&H q8h -Surgery consulted 2. Afib rate control with resumed home toprol, held eliquis 3. Presence of PPM ECG demonstrates atrially paced, in the 60s, no st elevation/depression or t wave inversion 4. Hypertension BPs in 150s systolic -will resume toprol xr, holding parameters for systolic under 110, diastolic under 50 5. Acute blood loss anemia H&H of 6.6 admission -plans as above for GI bleed 6. Generalized Weakness -PT/OT consult after surgery evaluation, more medically stable
[2017-11-16 08:29] LABS: Potassium 3.9 mEq/L (3.5-5.1)
[2017-11-16 08:30] LABS: Albumin 2.8 g/dL (3.5-5.7); Albumin/Globulin Ratio 1.3 (1.1-2.2); Bilirubin,Total 0.9 mg/dL (0.3-1.0); Calcium 8.2 mg/dL (8.6-10.3); Globulin 2.1 g/dL (2.4-3.5); Magnesium 1.7 mg/dL (1.6-2.6); Total Protein 4.9 g/dL (6.4-8.9)
[2017-11-16] MEDS: Multivit/Ca/Min/Fe/FA 1 TAB TABLET PO SCH (09:16)
[2017-11-16] MEDS ORDERED: Ondansetron 4 MG/2 ML VIAL ONE (09:54)
[2017-11-16] MEDS: Ondansetron 4 MG/2 ML VIAL IVP PRN (09:55)
[2017-11-16 10:56] LABS: Hematocrit 33.3 % (35.3-44.9)
[2017-11-16 11:12] LABS: Hemoglobin 11.1 g/dL (11.5-15.4)
[2017-11-16] MEDS: Sucralfate 1 GM TABLET PO SCH ×3 (14:46→21:14)
[2017-11-16] MEDS: Metoprolol XL (24 HR) Succ 25 MG TAB.ER.24H PO SCH (14:46)
--- NOTE | 2017-11-16 15:17 | General Surgery Consult Note ---
<Abbey Rush - Last Filed: 11/16/17 15:11> Date of Encounter: 11/16/17 Time of Encounter: 14:30 Assessment and Plan (1) Melena Current Visit: Yes Status: Acute May have cardiac, diabetic diet today NPO after midnight IV fluids Cardiology consultation for evaluation Hold Eliquis for now Monitor Hgb/Hct Plan for EGD in the next [address] Cai- risks, benefits, alternatives and expected outcomes reviewed with the patient and her family and they are in agreement to proceed PPI therapy BID Carafate therapy QID Surgery will continue to follow and assess progress (2) Acute blood loss anemia Current Visit: Yes Status: Acute Hgb- 6.6>8.8>11 3 units PRBC transfused Monitor labs (3) History of atrial fibrillation Current Visit: Yes Status: Acute Hold Eliquis at this time Cardiology consulted for recommendations- spoke with Dr. Haywood (4) NSTEMI (non-ST elevated myocardial infarction) Current Visit: No Status: Acute Hx of NSTEMI during previous admission 10/2017 (5) S/P placement of cardiac pacemaker Current Visit: Yes Status: Acute s/p Pacemaker placement 11/08/17 at [place] [facility] consulted for recommendations- spoke with Dr. Haywood History of Present Illness Consult date: 11/16/17 Reason for consult: other (Melena) Requesting physician: Dom Tovar History of present illness: Mrs. Charlton is a very pleasant 82 year old female with a past medical history significant for diabetes mellitus, colon cancer, hyperlipidemia, hypertension, non-ST elevation TX, hypothyroidism. She is recently status post an open sigmoidectomy with Dr. Cai on 10/25/2017. The patient was discharged from the hospital on 11/04/2017. Her postoperative course was complicated by an episode of atrial fibrillation with rapid ventricular rate. She also did have a non-ST elevation TX. She was seen and evaluated by cardiology. The patient had an elevated troponin up to 6.43. The patient was medically managed with aspirin, statin, beta herminia and scheduled to follow-up with cardiology. Upon discharge to home, the patient did experience episodes of syncope and was transferred back to the emergency room for evaluation. The patient was transferred to [place] for further workup and treatment. She did undergo pacemaker placement approximately 1 week ago and was started on Eliquis for history of atrial fibrillation. The patient states that shortly after starting Eliquis, she did develop melena. She also developed dizziness, weakness, shortness of breath. The patient presented to the emergency department for evaluation and was found to have a hemoglobin of 6.6. She denies any unexplained abdominal discomfort. She denies any nausea or vomiting. She denies any fevers or chills. She denies any difficulty with urination. She was admitted to the hospital for further workup and treatment. She did receive 3 units of packed red blood cells upon admission. Her hemoglobin is currently 11. We have been asked to see and evaluate the patient for further recommendations for endoscopy. Past Med Surg Social Fam HX - Past Medical History Source: patient, old records reviewed Medical history: cancer, diabetes, hyperlipidemia, hypertension, migraine, myocardial infarction (NSTEMI 10/2017), renal disease, thyroid disease, other Additional medical history: COLON CANCER WITH BOWEL RESECTION 10/25/2017, MACULAR DEGENERATION Psychiatric history: anxiety - Past Surgical History Surgical History: appendectomy, cholecystectomy, colectomy (Sigmoid colectomy with Dr. Cai), hysterectomy (partial secondary to fibroids), other ( Pacemaker placement approximately 1 week ago, laser eye surgery, colonoscopy) - Social History Smoking Status: Never smoker Smokeless Tobacco Status: No Alcohol use: none Drug use: none Occupational status: retired Current living situation: Home - Independent Activity Level: Independent ambulation - Family History Mother Living Status: Hx Family Cancer: Yes (Kidney) Brother Living Status: Hx Family Cancer: Yes Father Living Status: Hx Family Respiratory Disorders: Yes Hx Family Cancer: Yes (Lung cancer) Medications and Allergies Atorvastatin [Lipitor] 20 mg PO HS 06/10/17 [History] Glimepiride [Amaryl] 4 mg PO BID 06/10/17 [History] Latanoprost [Xalatan] 1 drop OP HS 06/10/17 [History] Levothyroxine [Synthroid] 100 mcg PO 0630 06/10/17 [History] Timolol Maleate 0.5% 1 drop OP BID 06/10/17 [History] Vit C/E/Zn/Coppr/Lutein/Zeaxan [Preservision Areds 2 Softgel] 1 tab PO DAILY [History] Acetaminophen [Tylenol] 650 mg PO Q6HR tablet 11/04/17 [Rx] Aspirin 81 mg PO DAILY #30 tab.chew 11/04/17 [Rx] Metoprolol XL (24 HR) Succ [Toprol Xl] 25 mg PO DAILY #30 tab.er.24h 11/04/17 [ Rx] Lisinopril/Hydrochlorothiazide [Zestoretic 20-25 mg Tablet] 1 tab PO DAILY 11/15 [History] 3 Allergy/AdvReac Type Severity Reaction Status Date / Time No Known Allergies Allergy Verified 11/15/17 20:49 Review of Systems All systems PM: reviewed and no additional remarkable complaints except as stated (in the HPI) All systems PM: The remainder of the systems were reviewed and are negative General Surgery Exam Initial Vital Signs Temp Pulse Resp BP Pulse Ox 97.8 F 65 20 177/69 95 11/15/17 17:57 11/15/17 17:57 11/15/17 17:57 11/15/17 17:57 11/15/17 17:57 - General physical appearance well developed, well nourished, no distress - Eyes PERRL, normal ocular movement - ENT normal mucosa, atraumatic, normocephalic - Neck trachea midline - Respiratory normal respiratory effort, clear to auscultation - Cardiovascular Cardiovascular exam: Present: RRR, 15, 16 - Abdomen Abdomen general surgery: Present: bowel sounds present, soft, tender (Minimal, incision tenderness) - Incision Incision: Present: clean and dry, intact - Integumentary Integumentary general surgery: Present: warm and dry - Neurologic Present: CN 2-12 grossly intact - Psychiatric Psychiatric general surgery: Present: appropriate, oriented to person, oriented to place, oriented to time, speech is normal, memory intact Exam Initial Vital Signs Temp Pulse Resp BP Pulse Ox 97.8 F 65 20 177/69 95 11/15/17 17:57 11/15/17 17:57 11/15/17 17:57 11/15/17 17:57 11/15/17 17:57 Results - Labs 11/16/17 10:25 11/16/17 05:24 Abnormal lab results RBC 2.99 M/mcL (3.82-4.97) L 11/16/17 05:24 Hgb 11.1 g/dL (11.5-15.4) L D 11/16/17 10:25 Hct 33.3 % (35.3-44.9) L 11/16/17 10:25 RDW 18.5 % (11.5-14.5) H 11/16/17 05:24 MPV 12.9 fL (9.4-12.4) H 11/16/17 05:24 Nucleated RBCs/100 WBC 0.2 /100 WBC (0) H 11/16/17 05:24 PT 17.6 Seconds (9.4-12.1) H 11/16/17 05:24 D-Dimer 2144 ng/mLFEU (0-500) H 11/15/17 18:42 Carbon Dioxide 30 mEq/L (23-29) H 11/16/17 05:24 BUN 37 mg/dL (8-23) H 11/16/17 05:24 Creatinine 1.31 mg/dL (0.60-1.20) H 11/16/17 05:24 Est GFR ( Amer) 47 (> 60) L 11/16/17 05:24 Est GFR (Non-Af Amer) 39 (> 60) L 11/16/17 05:24 BUN/Creatinine Ratio 28 (6-26) H 11/16/17 05:24 Glucose 59 mg/dL (70-105) L 11/16/17 05:24 Calcium 8.2 mg/dL (8.6-10.3) L 11/16/17 05:24 B-Natriuretic Peptide 761 pg/mL (Less than 100) H 11/15/17 18:42 Serum Total Protein 4.9 g/dL (6.4-8.9) L 11/16/17 05:24 Albumin 2.8 g/dL (3.5-5.7) L 11/16/17 05:24 Globulin 2.1 g/dL (2.4-3.5) L 11/16/17 05:24 Stool Occult Bld Scrn Positive (Negative) A 11/15/17 19:00 Diabetes panel 11/16/17 Range/Units 05:24 Sodium 139 (136-145) mEq/L Potassium 3.9 (3.5-5.1) mEq/L Chloride 102 (98-107) mEq/L Carbon Dioxide 30 H (23-29) mEq/L BUN 37 H (8-23) mg/dL Creatinine 1.31 H (0.60-1.20) mg/dL Glucose 59 L (70-105) mg/dL Calcium 8.2 L (8.6-10.3) mg/dL AST 17 (13-39) Units/L ALT 10 (7-52) Units/L Alkaline Phosphatase 53 (34-104) Units/L Albumin 2.8 L (3.5-5.7) g/dL Calcium panel 11/16/17 Range/Units 05:24 Calcium 8.2 L (8.6-10.3) mg/dL Albumin 2.8 L (3.5-5.7) g/dL Pituitary panel 11/16/17 Range/Units 05:24 Sodium 139 (136-145) mEq/L Potassium 3.9 (3.5-5.1) mEq/L Chloride 102 (98-107) mEq/L Carbon Dioxide 30 H (23-29) mEq/L BUN 37 H (8-23) mg/dL Creatinine 1.31 H (0.60-1.20) mg/dL Glucose 59 L (70-105) mg/dL Calcium 8.2 L (8.6-10.3) mg/dL Adrenal panel 11/16/17 Range/Units 05:24 Sodium 139 (136-145) mEq/L Potassium 3.9 (3.5-5.1) mEq/L Chloride 102 (98-107) mEq/L Carbon Dioxide 30 H (23-29) mEq/L BUN 37 H (8-23) mg/dL Creatinine 1.31 H (0.60-1.20) mg/dL Glucose 59 L (70-105) mg/dL Calcium 8.2 L (8.6-10.3) mg/dL Total Bilirubin 0.9 (0.3-1.0) mg/dL AST 17 (13-39) Units/L ALT 10 (7-52) Units/L Alkaline Phosphatase 53 (34-104) Units/L Albumin 2.8 L (3.5-5.7) g/dL All other labs normal. - Imaging Additional studies: Chest X-Ray 11/15/17 18:27 IMPRESSION: 1. Small right pleural effusion with associated atelectasis. 2. Likely trace left effusion and atelectasis. 3. Left cardiac pacer device in place with no pneumothorax identified. D/ / Bharathi Tran MD / Bharathi Tran MD Interpreting Provider: Bharathi Tran MD Chest CTA 11/15/17 19:58 IMPRESSION: 1. No evidence for pulmonary embolism. 2. Changes suggesting mild pulmonary edema. 3. Moderate to large right and small left pleural effusion with associated atelectasis. 4. Small mildly complex pericardial effusion which may reflect small hemopericardium given recent history of pacemaker placement. 5. Postsurgical changes of left pacemaker placement with expected mild stranding in subcutaneous gas within the soft tissues of the left chest wall. No pneumothorax identified. D/ / Bharathi Tran MD / Bharathi Tran MD Interpreting Provider: Bharathi Tran MD Abdomen CT 11/16/17 22:10 IMPRESSION: 1. No acute findings within the abdomen. 2. Pericardial effusion, possibly hemorrhagic effusion. 3. Bilateral pleural effusions with bilateral atelectasis. D/ / Kyle Santa MD / Kyle Santa MD Interpreting Provider: Kyle Santa MD Consult Discharge Plan - Plan Referrals: Graciela Crespo MD [Primary Care Provider] - - Attending Attestation For this encounter, I have reviewed the SPORTS DOCTOR or PA documentation, treatment plan, and medical decision making; and I have had face to face time with this patient. <Chapis Cai - Last Filed: 11/16/17 18:11> Date of Encounter: 11/16/17 Assessment and Plan (1) NSTEMI (non-ST elevated myocardial infarction) Current Visit: No Status: Acute (2) Melena Current Visit: Yes Status: Acute Patient with a history of ulcers, unknown if gastric or duodenal. Given her multiple recent cardiac events including an end STEMI, profound bradycardia and pacemaker implant one week ago we will consult cardiology, she was supposed to see cardiology as an outpatient today. Continue to hold Eliquis trend Hb plan EGD tomorrow with anesthesia, risks and benefits discussed and she wishes to proceed ok diet today (3) Acute blood loss anemia Current Visit: Yes Status: Acute Given patient's recent surgery and being on Eliquis if she was bleeding from the surgical site I would expect bright red blood per rectum and not melena. (4) History of atrial fibrillation Current Visit: Yes Status: Acute (5) S/P placement of cardiac pacemaker Current Visit: Yes Status: Acute Past Med Surg Social Fam HX - Past Medical History Source: patient Medical history: cancer (sigmoid colon cancer), myocardial infarction - Past Surgical History Surgical History: other Review of Systems All systems PM: reviewed and no additional remarkable complaints except as stated All systems PM: The remainder of the systems were reviewed and are negative General Surgery Exam Initial Vital Signs Temp Pulse Resp BP Pulse Ox 97.8 F 65 20 177/69 95 11/15/17 17:57 11/15/17 17:57 11/15/17 17:57 11/15/17 17:57 11/15/17 17:57 - General physical appearance well developed, well nourished, no distress - Eyes PERRL, normal ocular movement - ENT normal mucosa, normocephalic - Neck trachea midline - Respiratory normal expansion, clear to auscultation - Cardiovascular Cardiovascular exam: Present: RRR - Abdomen Abdomen general surgery: Present: bowel sounds present, soft, tender - Incision Incision: Present: clean and dry, intact ([place] in place) - Integumentary Integumentary general surgery: Present: warm and dry - Neurologic Present: CN 2-12 grossly intact - Musculoskeletal Present: normal posture, other (His deconditioning) - Psychiatric Psychiatric general surgery: Present: A&Ox3, oriented to time, speech is normal Exam Initial Vital Signs Temp Pulse Resp BP Pulse Ox 97.8 F 65 20 177/69 95 11/15/17 17:57 11/15/17 17:57 11/15/17 17:57 11/15/17 17:57 11/15/17 17:57 Results - Labs 11/16/17 10:25 11/16/17 05:24 Abnormal lab results RBC 2.99 M/mcL (3.82-4.97) L 09/06/18 05:24 Hgb 11.1 g/dL (11.5-15.4) L D 11/16/17 10:25 Hct 33.3 % (35.3-44.9) L 11/16/17 10:25 RDW 18.5 % (11.5-14.5) H 11/16/17 05:24 MPV 12.9 fL (9.4-12.4) H 11/16/17 05:24 Nucleated RBCs/100 WBC 0.2 /100 WBC (0) H 11/16/17 05:24 PT 17.6 Seconds (9.4-12.1) H 11/16/17 05:24 D-Dimer 2144 ng/mLFEU (0-500) H 11/15/17 18:42 Carbon Dioxide 30 mEq/L (23-29) H 11/16/17 05:24 BUN 37 mg/dL (8-23) H 11/16/17 05:24 Creatinine 1.31 mg/dL (0.60-1.20) H 11/16/17 05:24 Est GFR ( Amer) 47 (> 60) L 11/16/17 05:24 Est GFR (Non-Af Amer) 39 (> 60) L 11/16/17 05:24 BUN/Creatinine Ratio 28 (6-26) H 11/16/17 05:24 Glucose 59 mg/dL (70-105) L 11/16/17 05:24 Calcium 8.2 mg/dL (8.6-10.3) L 11/16/17 05:24 B-Natriuretic Peptide 761 pg/mL (Less than 100) H 11/15/17 18:42 Serum Total Protein 4.9 g/dL (6.4-8.9) L 11/16/17 05:24 Albumin 2.8 g/dL (3.5-5.7) L 11/16/17 05:24 Globulin 2.1 g/dL (2.4-3.5) L 11/16/17 05:24 Stool Occult Bld Scrn Positive (Negative) A 11/15/17 19:00 Diabetes panel 11/16/17 Range/Units 05:24 Sodium 139 (136-145) mEq/L Potassium 3.9 (3.5-5.1) mEq/L Chloride 102 (98-107) mEq/L Carbon Dioxide 30 H (23-29) mEq/L BUN 37 H (8-23) mg/dL Creatinine 1.31 H (0.60-1.20) mg/dL Glucose 59 L (70-105) mg/dL Calcium 8.2 L (8.6-10.3) mg/dL AST 17 (13-39) Units/L ALT 10 (7-52) Units/L Alkaline Phosphatase 53 (34-104) Units/L Albumin 2.8 L (3.5-5.7) g/dL Calcium panel 11/16/17 Range/Units 05:24 Calcium 8.2 L (8.6-10.3) mg/dL Albumin 2.8 L (3.5-5.7) g/dL Pituitary panel 11/16/17 Range/Units 05:24 Sodium 139 (136-145) mEq/L Potassium 3.9 (3.5-5.1) mEq/L Chloride 102 (98-107) mEq/L Carbon Dioxide 30 H (23-29) mEq/L BUN 37 H (8-23) mg/dL Creatinine 1.31 H (0.60-1.20) mg/dL Glucose 59 L (70-105) mg/dL Calcium 8.2 L (8.6-10.3) mg/dL Adrenal panel 11/16/17 Range/Units 05:24 Sodium 139 (136-145) mEq/L Potassium 3.9 (3.5-5.1) mEq/L Chloride 102 (98-107) mEq/L Carbon Dioxide 30 H (23-29) mEq/L BUN 37 H (8-23) mg/dL Creatinine 1.31 H (0.60-1.20) mg/dL Glucose 59 L (70-105) mg/dL Calcium 8.2 L (8.6-10.3) mg/dL Total Bilirubin 0.9 (0.3-1.0) mg/dL AST 17 (13-39) Units/L ALT 10 (7-52) Units/L Alkaline Phosphatase 53 (34-104) Units/L Albumin 2.8 L (3.5-5.7) g/dL All other labs normal. - Attending Attestation I have personally performed a face to face evaluation on this patient. I have reviewed and agree with the care plan. History and Exam by me shows:
[2017-11-16] MEDS: Ringers Solution, Lactated 1,000 ML IVC SCH (15:23)
[2017-11-16] MEDS: Pantoprazole 40 MG VIAL IVP SCH (17:31)
[2017-11-16 18:32] LABS: Hematocrit 34.1 % (35.3-44.9); Hemoglobin 11.4 g/dL (11.5-15.4)
--- NOTE | 2017-11-16 20:05 | Anesthesia Evaluation PreOp ---
Date of Encounter: 11/16/17 Time of Encounter: 20:03 - Past History Planned Operation: EGD Cardiac History: HTN, Hyperlipidemia Pulmonary History: Denies Any Significant HX CARTON MARKER MACHINE History: Denies Any Significant HX Other Medical History: Diabetes Type II, Other (GLAUCOMA, RETINOPATHY, HEMATOCHEZIA) Anesthesia History: No Prior Anesthetic Complications, Past Anesthesia (sigmoid colectomy) : No Alcohol Use: none Drug use: none Medications and Allergies Atorvastatin [Lipitor] 20 mg PO HS 06/10/17 [History] Glimepiride [Amaryl] 4 mg PO BID 06/10/17 [History] Latanoprost [Xalatan] 1 drop OP HS 06/10/17 [History] Levothyroxine [Synthroid] [place] [address]/10/17 [History] Timolol Maleate 0.5% 1 drop OP BID 06/10/17 [History] Vit C/E/Zn/Coppr/Lutein/Zeaxan [Preservision Areds 2 Softgel] 1 tab PO DAILY [History] Acetaminophen [Tylenol] 650 mg PO Q6HR tablet 11/04/17 [Rx] Aspirin 81 mg PO DAILY #30 tab.chew 11/04/17 [Rx] Metoprolol XL (24 HR) Succ [Toprol Xl] 25 mg PO DAILY #30 tab.er.24h 11/04/17 [ Rx] Lisinopril/Hydrochlorothiazide [Zestoretic 20-25 mg Tablet] 1 tab PO DAILY 11/15 [History] 3 Allergy/AdvReac Type Severity Reaction Status Date / Time No Known Allergies Allergy Verified 11/15/17 20:49 - Meds/Allergy Pre-op Review Medications Reviewed: Yes Allergies Reviewed: Yes Beta Blockers on Current Med List: Yes If Beta Blockers taken, Date/Time (Last Dose taken): 11/16 @ 14:46 Anesthesia Results - Labs 11/16/17 18:09 11/16/17 05:24 - Imaging EKG: report reviewed (SINUS RHYTHM) Anesthesia Exam Vital Signs/O2 Sat, Most Current Temp Pulse Resp BP Pulse Ox 98.2 F 62 18 165/67 96 11/16/17 16:07 11/16/17 16:07 11/16/17 16:07 11/16/17 16:07 09/06/18 16:07 NPO (# of Hours): > 8 hrs Pain Scale: 0 Pain Scale Used: Numeric (1 - 10) - HEENT Pupil (Motor): Pupils equal, EOMI Mallampati: II Teeth: Poor dentition Oral Opening: Greater than 3 - CARTON MARKER MACHINE LOC: Oriented CARTON MARKER MACHINE Motor: Normal RUE, Normal LUE, Normal RLE, Normal LLE, Normal Face CARTON MARKER MACHINE Sensory: Normal: RUE, LUE, RLE, LLE, Face - Cardiac Rhythm: Regular Murmur: None JVD: No Carotid Bruit: No - Pulmonary Breath Sounds: bilateral Clear Respiratory Effort: Symmetrical Anesthesia Assess/Plan ASA Score: 3 Modified Prince Scale for Level of Consciousness: Cooperative, oriented, and tranquil Anesthetic Plan: MAC Autologous Blood: Yes Monitoring Plan: Standard Monitors Recovery Plan: Other
[2017-11-16] MEDS: Latanoprost 2.5 ML BOTTLE BOTH EYES SCH (20:30)
[2017-11-17] MEDS: Melatonin 3 MG TABLET PO PRN ×2 (00:35→23:56)
[2017-11-17] MEDS: Insulin LISPRO 300 UNITS/3 ML VIAL SQ SCH ×4 (00:39→15:51)
[2017-11-17 02:34] LABS: Hematocrit 29.9 % (35.3-44.9); Hemoglobin 10.1 g/dL (11.5-15.4); Immature Platelets 13.6 % (1.1-6.1); Mean Corpuscular HGB Conc 33.8 g/dL (31.6-35.5); Mean Corpuscular Hemoglobin 29.8 pg (28.0-33.3); Mean Corpuscular Volume 88.2 fL (83.0-100.0); Mean Platelet Volume 13.1 fL (9.4-12.4); Red Blood Count 3.39 M/mcL (3.82-4.97); Red Cell Distribution Width 18.6 % (11.5-14.5)
[2017-11-17 02:45] LABS: Calcium 8.3 mg/dL (8.6-10.3); Potassium 3.8 mEq/L (3.5-5.1)
[2017-11-17] MEDS: Ringers Solution, Lactated 1,000 ML IVC SCH (04:42)
[2017-11-17] MEDS: Pantoprazole 40 MG VIAL IVP SCH (05:57)
[2017-11-17] MEDS: Multivit/Ca/Min/Fe/FA 1 TAB TABLET PO SCH (08:23)
[2017-11-17] MEDS: Sucralfate 1 GM TABLET PO SCH ×4 (08:24→22:23)
[2017-11-17] MEDS: Metoprolol XL (24 HR) Succ 25 MG TAB.ER.24H PO SCH (08:24)
[2017-11-17] MEDS: Ondansetron 4 MG/2 ML VIAL IVP PRN (08:34)
--- NOTE | 2017-11-17 09:40 | Event Note ---
Date of Encounter: 11/17/17 Time of Encounter: 08:30 - Cardiology Event Note Reviewed patient's previous and current testing, notes, laboratory data. Patient admitted with melena, hemoglobin 6.6. Patient was recently seen by [facility] 10/2017 for a.fib. Per cardiology previous notes, was not a good candidate for anticoagulation due to down trending hemoglobin on heparin drip. After discharge patient was re-evlauted by ANANDA Solis for a.fib RVR. Patient was started on cardizem drip and was then noticed to have significant pauses. Family requested transfer to [place]. At [place], permanent pacemaker was placed and patient was started on eliquis for anticoagulation. Now admitted with GI bleed. Recommend discontinuation of eliquis. Patient educated on increased risk of CVA/embolic event without anticoagulation, states understanding. Patient also states she does not wish to continue anticoagulation either. Regarding pacemaker, patient has follow up scheduled with [facility] as outpatient to monitor pacemaker. HR currently controlled. Of note, patient complaining of some swelling in hands. IVF noted running, consider decreasing IVF rate. Cardiology will sign off, re-consult if needed.
[2017-11-17 10:22] LABS: Hematocrit 32.9 % (35.3-44.9); Hemoglobin 10.7 g/dL (11.5-15.4)
[2017-11-17] MEDS ORDERED: Propofol 500 MG/50 ML INFUS..BTL ONE (13:12)
[2017-11-17] MEDS ORDERED: Lidocaine -MPF 2% 2 ML VIAL ONE (13:13)
--- NOTE | 2017-11-17 13:25 | Internal Med Progress Note ---
<Danish Hall - Last Filed: 11/17/17 15:08> Hospitalist Progress Note - Encounter Date of Encounter: 11/17/17 Time of Encounter: 09:45 - Subjective Interval History: Patient is seen and evaluated in chair next to bed. No acute events overnight. Surgery seen yesterday with plan for scoping today. Eliquis held. Cardiology has seen patient this AM. PPM follow-up outpatient planned per Cardiology. Patient does not increased swelling of her hands and feet (echo pending), denies chest pain, shortness of breath, fever. - Exam Vitals: Temp Pulse Resp BP Pulse Ox 97.8 F 60 16 153/68 94 11/17/17 11:46 11/17/17 11:46 11/17/17 11:46 11/17/17 11:46 11/17/17 11:46 Exam: Gen - alert and oriented x3; pleasant/calm today, answers questions appropriately CV - RRR, HR in 60s, S1 and S2, no gallop, rub, murmur Lung - normal chest wall excursion, CTAB Abd - non-tender to palpation, non-distended, no hepatosplenomegaly Skin - no petechiae, no tenting, no cyanosis; increased swelling of hands/ forearm, lower extremities - Assessment and Plan (1) GI bleed Current Visit: Yes Status: Acute Assessment and Plan: recent history of Eliquis initiation at [facility] in setting of afib; recent ppm insertion melana on pt hx recently positive stool occult s/p transfusion 3U pRBC; hgb 6.6 ->11.1 ->10.8 -held Eliquis -Surgery consulted, plan for scoping this afternoon -Cardiology plans to see patient outpatient for follow-up PPM/afib, continue holding elequis, cont toprol (2) Acute blood loss anemia Current Visit: Yes Status: Acute Assessment and Plan: hgb improved, plan as above (3) S/P placement of cardiac pacemaker Current Visit: Yes Status: Acute Assessment and Plan: Hx as above, plan for outpatient follow-up with Cardiology; ECG shows paced rhythm, no st elevation/depression/t wave inversion (4) Atrial fibrillation Current Visit: Yes Status: Chronic Assessment and Plan: Continue Toprol extended release 25mg daily for rate control Patient recent history of GI bleed/melena on Eliquis, patient aware of stroke risk while off of Eliquis and discussed plan to discontinue with Cardiology, Surgery, and Primary team. (5) Hypertension Current Visit: No Status: Acute Assessment and Plan: remains elevated 150s to 180s, 150s after hydralazine, daily bb cont toprol xl 25mg po daily cont hydralazine q6h spot diuresis with creat monitoring in setting of Upper and lower extremity swelling as well - Time Spent with Patient Total time spent is greater than 50% in coordination of care (as documented) at patient's floor/unit and/or counseling patient: Internal Medicine: Result - Labs CBC & Chem 7: 11/17/17 10:07 11/17/17 01:50 Labs: Short CBC 11/16/17 11/17/17 11/17/17 Range/Units 18:09 01:50 10:07 WBC 9.6 (4.3-11.1) K/mcL Hgb 11.4 L 10.1 L 10.7 L (11.5-15.4) g/dL Hct 34.1 L 29.9 L 32.9 L (35.3-44.9) % Plt Count 171 (140-400) K/mcL BMP 11/17/17 01:50 Sodium 136 Potassium 3.8 Chloride 102 Carbon Dioxide 29 BUN 25 H Creatinine 1.22 H Glucose 88 Calcium 8.3 L - ABG Interpretation ABG results: PT/INR, D-dimer PT 17.6 Seconds (9.4-12.1) H 11/16/17 05:24 D-Dimer 2144 ng/mLFEU (0-500) H 11/15/17 18:42 - Impressions Impressions Echocardiogram Limited Views 11/16/17 03:10 Impressions: Limited echo LVEF 65%. Normal LV chamber size, wall thickness and systolic function. Normal right ventricular structure and function. Mildly dilated left atrium. There is no pericardial effusion present. Left Ventricular Wall Motion: Rest Echo Findings All wall segments showed normal motion. Findings: Comements * Limited echo ? pericardial effusion, LV ECG Findings * Normal sinus rhythm. Left Ventricle * LVEF 65%. * Normal LV chamber size, wall thickness and systolic function. Right Ventricle * Normal right ventricular structure and function. Left Atrium * Mildly dilated left atrium. Right Atrium * Normal right atrial size. Possible a catheter tip present. Pericardium * There is no pericardial effusion present. - VTE Documentation of Mechanical Device: Intermittent pneumatic compression device Consult Discharge Plan - Plan Referrals: Graciela Crespo MD [Primary Care Provider] - <Izabella Ricks - Last Filed: 11/17/17 16:41> Hospitalist Progress Note - Encounter Date of Encounter: 11/17/17 Time of Encounter: 16:37 - Exam Vitals: Temp Pulse Resp BP Pulse Ox 97.6 F 63 14 170/70 96 11/17/17 15:34 11/17/17 15:34 11/17/17 15:34 11/17/17 15:34 11/17/17 15:34 - Assessment and Plan (1) GI bleed Current Visit: Yes Status: Acute (2) Weakness Current Visit: Yes Status: Acute (3) Atrial fibrillation Current Visit: Yes Status: Chronic (4) Pericardial effusion Current Visit: Yes Status: Ruled-out (5) DVT prophylaxis Current Visit: Yes Status: Acute - Time Spent with Patient Total time spent is greater than 50% in coordination of care (as documented) at patient's floor/unit and/or counseling patient: Internal Medicine: Result - Labs CBC & Chem 7: 11/17/17 10:07 11/17/17 01:50 Labs: Short CBC 11/16/17 11/17/17 11/17/17 Range/Units 18:09 01:50 10:07 WBC 9.6 (4.3-11.1) K/mcL Hgb 11.4 L 10.1 L 10.7 L (11.5-15.4) g/dL Hct 34.1 L 29.9 L 32.9 L (35.3-44.9) % Plt Count 171 (140-400) K/mcL BMP 11/17/17 01:50 Sodium 136 Potassium 3.8 Chloride 102 Carbon Dioxide 29 BUN 25 H Creatinine 1.22 H Glucose 88 Calcium 8.3 L - ABG Interpretation ABG results: PT/INR, D-dimer PT 17.6 Seconds (9.4-12.1) H 11/16/17 05:24 D-Dimer 2144 ng/mLFEU (0-500) H 11/15/17 18:42 - Impressions Impressions Echocardiogram Limited Views 11/16/17 03:10 Impressions: Limited echo LVEF 65%. Normal LV chamber size, wall thickness and systolic function. Normal right ventricular structure and function. Mildly dilated left atrium. There is no pericardial effusion present. Left Ventricular Wall Motion: Rest Echo Findings All wall segments showed normal motion. Findings: Comements * Limited echo ? pericardial effusion, LV ECG Findings * Normal sinus rhythm. Left Ventricle * LVEF 65%. * Normal LV chamber size, wall thickness and systolic function. Right Ventricle * Normal right ventricular structure and function. Left Atrium * Mildly dilated left atrium. Right Atrium * Normal right atrial size. Possible a catheter tip present. Pericardium * There is no pericardial effusion present. - Attending Attestation I saw evaluated and examined this patient and my medical decision-making was reviewed with the Resident Physician, Danish Hall. I agree with the documented findings, disposition and treatment plan as described except to any changes set forth below. We independently had ncbi-[id number]-daxp contact with the patient. Patient complains of swelling in her lower extremities and hands. She has not had any more bowel movements. No hematemesis. No dizziness or lightheadedness. No chest pain. On examination, patient is awake and alert. She does have bilateral lower extremity edema. Heart sounds are normal. Breath sounds are normal. No wheezing noted. Abdomen is soft, nontender. GI bleed: Concern for upper GI bleed. Continue to hold anticoagulants. Upper GI endoscopy plan for today. Will follow results. Continue PPI. Atrial fibrillation: Rate controlled. Continue Toprol. Hold and cognition due to GI bleed. Essential hypertension: Blood pressure remains elevated. We will resume Prinzide.. On IV hydralazine as needed. Pedal edema: Will give Lasix intravenously and continue home dose of Lasix. Diabetes mellitus type 2: Well controlled. Diabetic diet. Pericardial effusion: ruled out per echocardiogram. <Igiugig,Danish - Last Filed: 11/17/17 15:08> (1) GI bleed Qualifiers: GI bleed type/associated pathology: melena Qualified Code(s): K92.1 - Melena (4) Atrial fibrillation Qualifiers: Atrial fibrillation type: chronic Qualified Code(s): I48.2 - Chronic atrial fibrillation (5) Hypertension Qualifiers: Hypertension type: essential hypertension Qualified Code(s): I10 - Essential (primary) hypertension <Izabella Ricks - Last Filed: 11/17/17 16:41> (1) GI bleed Qualifiers: GI bleed type/associated pathology: melena Qualified Code(s): K92.1 - Melena (3) Atrial fibrillation Qualifiers: Atrial fibrillation type: chronic Qualified Code(s): I48.2 - Chronic atrial fibrillation
[2017-11-17] MEDS ORDERED: *HR* Etomidate 40 MG/20 ML VIAL IVP ONE (13:47)
[2017-11-17] MEDS ORDERED: Tetracaine/Benzocaine/Butamben 200MG/SPRAY (100SPY/BOT) MM ONE (14:30)
[2017-11-17] MEDS ORDERED: Simethicone 40 MG/0.6 ML MLS IR ONE (14:30)
[2017-11-17] MEDS ORDERED: Furosemide 40 MG TABLET PO ONE (15:06)
--- NOTE | 2017-11-17 15:14 | Event Note ---
Date of Encounter: 11/17/17 Time of Encounter: 15:12 EGD with two gastric antral ulcers. Continue protonix 40 mg po daily and carafate 1 gm po qid x 1 month. Ok to restart aspirin now, hold plavix and eliquis for several days.
[2017-11-17] MEDS: Aspirin 81 MG TAB.CHEW PO SCH (15:51)
[2017-11-17 18:38] LABS: Hemoglobin 11.5 g/dL (11.5-15.4)
[2017-11-17] MEDS: Furosemide 40 MG/4 ML VIAL IVP SCH (20:47)
[2017-11-17] MEDS: Latanoprost 2.5 ML BOTTLE BOTH EYES SCH (20:48)
[2017-11-18] MEDS: Insulin LISPRO 300 UNITS/3 ML VIAL SQ SCH (00:16)
[2017-11-18 02:47] LABS: Hematocrit 33.3 % (35.3-44.9); Hemoglobin 10.8 g/dL (11.5-15.4); Mean Corpuscular HGB Conc 32.4 g/dL (31.6-35.5); Mean Corpuscular Volume 89.5 fL (83.0-100.0); Mean Platelet Volume 12.7 fL (9.4-12.4); Platelet Count 189 K/mcL (140-400); Red Blood Count 3.72 M/mcL (3.82-4.97)
[2017-11-18 02:54] LABS: Calcium 8.5 mg/dL (8.6-10.3); Potassium 3.5 mEq/L (3.5-5.1)
[2017-11-18] MEDS ORDERED: Insulin LISPRO 300 UNITS/3 ML VIAL SQ SCH ×2 (07:30→21:00)
[2017-11-18] MEDS: Furosemide 40 MG/4 ML VIAL IVP SCH (08:36)
[2017-11-18] MEDS: Aspirin 81 MG TAB.CHEW PO SCH (08:37)
[2017-11-18] MEDS: Metoprolol XL (24 HR) Succ 25 MG TAB.ER.24H PO SCH (08:42)
[2017-11-18] MEDS: Multivit/Ca/Min/Fe/FA 1 TAB TABLET PO SCH (09:16)
[2017-11-18] MEDS: Sucralfate 1 GM TABLET PO SCH (09:16)
[2017-11-18 10:20] LABS: Hematocrit 35.5 % (35.3-44.9); Hemoglobin 11.6 g/dL (11.5-15.4)
--- NOTE | 2017-11-18 10:20 | Discharge Summary ---
- NOTES TO OUTPATIENT PROVIDER Notes to Outpatient Provider: Patient was hospitalized here after presenting with melena and was found to have severe anemia with hemoglobin of 6.6. She will received 3 units of packed red Blood cells. Patient was on anticoagulation with Eliquis which was held. Patient then underwent upper GI endoscopy yesterday which showed gastric ulcers. At this time surgery recommends holding Plavix and Eliquis. Patient will follow up with her primary care provider and stogie packer for further management. She will take PPI and Carafate to help treat her ulcers. Her hemoglobin levels have remained stable since her last transfusion. She has not had any further episodes of GI bleed. Orders not resulted at time of discharge: Pending orders 11/16/17 06:00 ECG 12 lead ECG [ECG] AM 0600 11/17/17 15:07 Surgical Pathology [PTH] Routine 11/17/17 15:08 H. pylori Urease Culture [RM] Routine 11/18/17 10:07 Hemoglobin and Hematocrit [HEME] Q8H 11/18/17 18:00 Hemoglobin and Hematocrit [HEME] Q8H 11/19/17 02:00 Hemoglobin and Hematocrit [HEME] Q8H Date of Encounter: 11/18/17 Time of Encounter: 10:17 - Discharge Diagnosis (1) GI bleed Priority: Primary Status: Acute Qualifiers: GI bleed type/associated pathology: gastric ulcer Qualified Code(s): K25.4 - Chronic or unspecified gastric ulcer with hemorrhage (2) Weakness Priority: Secondary Status: Acute (3) Atrial fibrillation Priority: Secondary Status: Chronic Qualifiers: Atrial fibrillation type: chronic Qualified Code(s): I48.2 - Chronic atrial fibrillation (4) Pericardial effusion Priority: Secondary Status: Ruled-out (5) DVT prophylaxis Priority: Secondary Status: Acute Hospital course: Ms. Charlton is a 82 year old female Patient with history of recently diagnosed atrial fibrillation on anticoagulation with Eliquis, hypertension who was hospitalized here after presenting with melena and was found to have severe anemia with hemoglobin of 6.6. She will received 3 units of packed red Blood cells. Patient was on anticoagulation with Eliquis which was held. Patient then underwent upper GI endoscopy yesterday which showed gastric ulcers. At this time surgery recommends holding Plavix and Eliquis. Patient will follow up with her primary care provider and stogie packer for further management. She will take PPI and Carafate to help treat her ulcers. Her hemoglobin levels have remained stable since her last transfusion. She has not had any further episodes of GI bleed. Initial CT scan of the abdomen and pelvis assisted possible pericardial effusion. An 2-D echocardiogram was done which did not show any effusion. Discharge discussed with: patient - Time Spent with Patient Total time spent providing and/or coordinating discharge services: Greater than 30 minutes (32 min) - Discharge Medications Prescriptions: Omeprazole [PriLOSEC] 40 mg PO DAILY #30 cap Sucralfate [Carafate] 1 gm PO QIDAC #120 tablet Home Medications: Atorvastatin [Lipitor] 20 mg PO HS 06/10/17 [History] Glimepiride [Amaryl] 4 mg PO BID 06/10/17 [History] Latanoprost [Xalatan] 1 drop OP HS 06/10/17 [History] Levothyroxine [Synthroid] 100 mcg PO 0630 06/10/17 [History] Timolol Maleate 0.5% 1 drop OP BID 06/10/17 [History] Vit C/E/Zn/Coppr/Lutein/Zeaxan [Preservision Areds 2 Softgel] 1 tab PO DAILY [History] Acetaminophen [Tylenol] 650 mg PO Q6HR tablet 11/04/17 [Rx] Aspirin 81 mg PO DAILY #30 tab.chew 11/04/17 [Rx] Metoprolol XL (24 HR) Succ [Toprol Xl] 25 mg PO DAILY #30 tab.er.24h 11/04/17 [ Rx] Lisinopril/Hydrochlorothiazide [Zestoretic 20-25 mg Tablet] 1 tab PO DAILY 11/15 [History] Omeprazole [PriLOSEC] 40 mg PO DAILY #30 cap 11/18/17 [Rx] Sucralfate [Carafate] 1 gm PO QIDAC #120 tablet 11/18/17 [Rx] Allergies/Adverse Reactions: 3 Allergy/AdvReac Type Severity Reaction Status Date / Time No Known Allergies Allergy Verified 11/15/17 20:49 Date of admission: 11/15/17 23:26 Primary care physician: Graciela Crespo Consults: 11/16/17 05:17 Consult to Surgery [CONS] Routine Consulting Provider: Haseeb Rush Reason for Consult: UGI bleed. Time Notified: 09:22 Call Completed: Yes 11/16/17 14:42 Consult to Cardiology [CONS] Routine Comment: Consulting Provider: Rahda Segura Reason for Consult: s/p pacemaker placement 1 week ago and placed on eliquis ; now admitted with melena and acute blood loss anemia Time Notified: 14:43 Call Completed: Yes Discharging clinician: Izabella Ricks Anticipated date of discharge: 11/18/17 - Constitutional Vitals: Temp Pulse Resp BP Pulse Ox 98.2 F 69 18 151/63 95 11/18/17 06:59 11/18/17 06:59 11/18/17 06:59 11/18/17 06:59 11/18/17 06:59 General appearance: Present: cooperative, A&O X 3, pleasant, answers questions appropriately Exam: . - Respiratory Respiratory exam: Present: CTAB. Absent: accessory muscle use, rales, rhonchi, wheezes - Cardiovascular Cardiovascular exam: Present: RRR, +S1, +S2. Absent: diastolic murmur, gallop, rubs, systolic murmur - GI/Abdominal GI/Abdominal exam: Present: normal bowel sounds, soft, no peritoneal signs. Absent: distended, tenderness - Extremities Exam Extremities exam: Present: warm, radial pulses palpable and symmetrical. Absent : calf tenderness, cyanotic, pedal edema - Patient Status Disposition: Home, Self-Care Condition: Good Functional capacity at discharge: uses cane/walker Overall status at discharge: patient is progressing back to baseline - Discharge Instructions Instructions: Anemia (GEN) Follow Up With: Graciela Crespo MD [Primary Care Provider] - (In 1-2 weeks) Additional Instructions: Follow-up with your stogie packer in 1-2 weeks - Diet and Activity Activity: increase activity as tolerated Diet: advance to your usual diet, low fat, low cholesterol, low salt diet - VTE Documentation of Mechanical Device: Intermittent pneumatic compression device
[2017-11-18 10:57] VITALS: BP 133/61
--- NOTE | 2017-11-18 13:15 | Electrocardiograph Report ---
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
== END 2017-11-18 11:57 | disposition home or self-care (01) ==
LOC: EMEROOARM 17:55 → 2ANU 17:55 → SUATTDRO 23:26 → 2ANU 23:55
PROVIDERS: ADMIT Pediatrics; ATTEND Internal Medicine
PROC: ENDOEBX (2017-11-17 17:30)

== ENCOUNTER 2020-09-07 19:16 | Observation (INO) ==
[2020-09-07] MEDS ORDERED: Furosemide 40 MG/4 ML VIAL IVP ONE (21:06)
[2020-09-07 22:24] LABS: Basophils % 0.6 %; Eosinophils # 0.2 K/mcL (0.0-0.6); Eosinophils % 3.2 %; Hematocrit 33.2 % (35.3-44.9); Hemoglobin 10.2 g/dL (11.5-15.4); Immature Granulocytes % 0.3 % (0-4); Immature Platelets 12.1 % (1.1-6.1); Lymphocytes # 1.6 K/mcL (0.6-4.6); Lymphocytes % 24.5 %; Mean Corpuscular HGB Conc 30.7 g/dL (31.6-35.5); Mean Corpuscular Hemoglobin 29.1 pg (28.0-33.3); Mean Corpuscular Volume 94.9 fL (83.0-100.0); Mean Platelet Volume 13.5 fL (9.4-12.4); Monocytes % 15.2 %; Neutrophils # 3.7 K/mcL (1.6-8.9); Platelet Count 169 K/mcL (140-400); Red Cell Distribution Width 15.3 % (11.5-14.5); Segmented Neutrophils % 56.2 %; White Blood Count 6.5 K/mcL (4.3-11.1)
[2020-09-07 22:37] LABS: BUN/Creatinine Ratio 21 (6-26); Blood Urea Nitrogen 41 mg/dL (8-23); Calcium 8.9 mg/dL (8.6-10.3); Carbon Dioxide 29 mEq/L (23-29); Chloride 105 mEq/L (98-107); Glucose 99 mg/dL (70-105); Osmolality,Calculated 298 (280-300); Potassium 3.9 mEq/L (3.5-5.1); Sodium 139 mEq/L (136-145); Troponin I < 0.03 ng/mL (< 0.04); eGFR For African Americans 29 (> 60); eGFR For Non-African Americans 24 (> 60)
[2020-09-08 00:25] LABS: Bacteria,Urine Few per hpf (None-Few); Bilirubin,Urine Negative (Negative); Blood,Urine Negative (Negative); Clarity,Urine Clear (Clear); Color,Urine Light-Yellow (Yellow); Glucose,Urine (UA) Normal (Normal); Ketones,Urine Negative (Negative); Leukocyte Esterase,Urine Large (Negative); Mucus,Urine Few per lpf (None-Few); Nitrite,Urine Negative (Negative); Protein,Urine Negative (Neg-Trace); RBC,Urine 0-3 per hpf (0-3); Specific Gravity,Urine 1.014 (1.010-1.025); Squamous Epithelial Cell,Urine Few per hpf (None-Few); Urobilinogen,Urine Normal (Normal); WBC,Urine 15-30 per hpf (0-3)
[2020-09-08] MEDS ORDERED: cefTRIAXone 1,000 MG in Water for inj. (sterile) 10 ML IVP ONE (00:35)
[2020-09-08 00:41] LABS: INR 1.7; Prothrombin Time 19.3 Seconds (9.4-12.1)
[2020-09-08] MEDS ORDERED: Ondansetron 4 MG/2 ML VIAL IVP PRN (03:29)
[2020-09-08] MEDS ORDERED: Melatonin 3 MG TABLET PO PRN (03:29)
[2020-09-08] MEDS ORDERED: Acetaminophen 325 MG TABLET PO PRN (03:29)
[2020-09-08] MEDS ORDERED: Naloxone 0.4 MG/ML INJ IVP PRN (03:29)
[2020-09-08] MEDS ORDERED: *HR* Dextrose 50 % in Water (Vial) 50 ML VIAL IVP PRN (05:30)
[2020-09-08] MEDS ORDERED: D5% in Water 1,000 ML IVC PRN (05:30)
[2020-09-08] MEDS ORDERED: Dextrose Gel 15 GM/37.5 ML TUBE PO PRN ×2 (05:30)
[2020-09-08] MEDS ORDERED: Perflutren Lipid Microsphere 1.3 ML in 0.9 % Sodium Chloride 8.7 ML IVP PRN (05:35)
[2020-09-08] MEDS: Insulin LISPRO 300 UNITS/3 ML VIAL SUBQ SCH ×3 (05:46→18:10)
[2020-09-08] MEDS ORDERED: *HR* Heparin 5,000 UNIT/ML VIAL SQ SCH (06:00)
[2020-09-08 06:51] LABS: Basophils % 0.4 %; Eosinophils # 0.3 K/mcL (0.0-0.6); Hematocrit 34.5 % (35.3-44.9); Immature Granulocytes % 0.4 % (0-4); Immature Platelets 11.2 % (1.1-6.1); Lymphocytes # 1.6 K/mcL (0.6-4.6); Lymphocytes % 21.9 %; Mean Corpuscular HGB Conc 31.9 g/dL (31.6-35.5); Mean Corpuscular Hemoglobin 29.7 pg (28.0-33.3); Mean Corpuscular Volume 93.2 fL (83.0-100.0); Mean Platelet Volume 13.7 fL (9.4-12.4); Monocytes # 1.1 K/mcL (0.0-1.3); Monocytes % 14.7 %; Neutrophils # 4.3 K/mcL (1.6-8.9); Platelet Count 193 K/mcL (140-400); Red Cell Distribution Width 15.3 % (11.5-14.5); Segmented Neutrophils % 58.6 %; White Blood Count 7.3 K/mcL (4.3-11.1)
[2020-09-08 07:13] LABS: Alanine Aminotransferase 13 Units/L (7-52); Albumin 3.8 g/dL (3.5-5.7); Albumin/Globulin Ratio 1.4 (1.1-2.2); Alkaline Phosphatase 78 Units/L (34-104); Aspartate Amino Transferase 19 Units/L (13-39); BUN/Creatinine Ratio 22 (6-26); Bilirubin,Total 0.4 mg/dL (0.3-1.0); Blood Urea Nitrogen 38 mg/dL (8-23); Calcium 9.2 mg/dL (8.6-10.3); Carbon Dioxide 28 mEq/L (23-29); Chloride 104 mEq/L (98-107); Globulin 2.8 g/dL (2.4-3.5); Glucose 109 mg/dL (70-105); Magnesium 1.8 mg/dL (1.6-2.6); Osmolality,Calculated 302 (280-300); Phosphorous 3.9 mg/dL (2.7-4.5); Potassium 3.7 mEq/L (3.5-5.1); Sodium 141 mEq/L (136-145); Total Protein 6.6 g/dL (6.4-8.9); Troponin I < 0.03 ng/mL (< 0.04); eGFR For African Americans 34 (> 60); eGFR For Non-African Americans 28 (> 60)
[2020-09-08] MEDS: Metoprolol XL (24 HR) Succ 50 MG TAB.ER.24H PO SCH (14:08)
[2020-09-08] MEDS: Aspirin 81 MG TAB.CHEW PO SCH (14:08)
[2020-09-08] MEDS ORDERED: *HR* LORazepam 1 MG TABLET PO ONE (20:15)
[2020-09-08] MEDS: Apixaban 5 MG TABLET PO SCH (20:50)
[2020-09-08] MEDS ORDERED: Latanoprost 2.5 ML BOTTLE BOTH EYES SCH (21:00)
[2020-09-08] MEDS: Dorzolamide/Timolol OPTH 10 ML BOTTLE LEFT EYE SCH (22:03)
[2020-09-09] MEDS: Insulin LISPRO 300 UNITS/3 ML VIAL SUBQ SCH ×3 (07:28→10:49)
[2020-09-09] MEDS: Metoprolol XL (24 HR) Succ 50 MG TAB.ER.24H PO SCH (08:52)
[2020-09-09] MEDS: Apixaban 5 MG TABLET PO SCH (08:52)
[2020-09-09] MEDS: Aspirin 81 MG TAB.CHEW PO SCH (08:52)
[2020-09-09] MEDS: Dorzolamide/Timolol OPTH 10 ML BOTTLE LEFT EYE SCH (08:53)
[2020-09-09] MEDS ORDERED: DilTIAZem CD (24hr) 120 MG CAP.ER.24H PO SCH (09:00)
[2020-09-09 10:27] VITALS: BP 165/53
[2020-09-09 10:57] LABS: Hemoglobin 11.1 g/dL (11.5-15.4); Mean Corpuscular HGB Conc 31.7 g/dL (31.6-35.5); Mean Corpuscular Hemoglobin 29.8 pg (28.0-33.3); Mean Corpuscular Volume 93.8 fL (83.0-100.0); Mean Platelet Volume 13.6 fL (9.4-12.4); Red Blood Count 3.73 M/mcL (3.82-4.97); Red Cell Distribution Width 15.2 % (11.5-14.5); White Blood Count 7.3 K/mcL (4.3-11.1)
[2020-09-09 11:15] LABS: Calcium 8.9 mg/dL (8.6-10.3); Magnesium 1.8 mg/dL (1.6-2.6); Potassium 3.8 mEq/L (3.5-5.1)
[2020-09-09] MEDS ORDERED: Insulin LISPRO 300 UNITS/3 ML VIAL SUBQ SCH (21:00)
== END 2020-09-09 12:54 | disposition home or self-care (01) ==
LOC: CDU 19:16 → EMEROOARM 19:16 → SUATTDRO 09-08 01:10 → CDU 09-08 01:27
PROVIDERS: ADMIT Family Medicine; ATTEND Internal Medicine